=== PATIENT | male | born 1950 | race Caucasian/White ===

== ENCOUNTER 2020-08-22 14:22 | Inpatient (IN) | payer OTHER, MEDICARE ==
--- NOTE | 2020-08-22 14:38 | PDOC ---
History of Present Illness - General Chief Complaint: Loss of Appetite Stated Complaint: GENERAL WEAKNESS Time Seen by Provider: 08/22/20 14:38 - History of Present Illness Initial Comments: 70 YOM h/o testicular cancer with extension into penis and inguinal lymph nodes presents with abdominal pain, nausea, vomitting, and decreased appetite since 5 days. Patient reports pain is diffuse, food is unappealing and tastes badly. He also reports some chronic constipation which has worsened coinciding with the onset of his current symptoms. He has hemorrhoids and blood which coats his stool. Denies blood in vomit or urine. Last BM 3 days ago, still passing flatus. Uses suprapubic catheter to eliminate urine. He denies fever, chills, chest pain, shortness of breath, recent travel or sick contacts. Constitutional: No Weight Change, No Fever, No Chills, No Night Sweats, No Fatigue, No Malaise ENT/Mouth: No Hearing Changes, No Ear Pain, No Nasal Congestion, No Sinus Pain, No Hoarseness, No sore throat, No Rhinorrhea, No Swallowing Difficulty Eyes: No Eye Pain, No Swelling, No Redness, No Foreign Body, No Discharge, No Vision Changes Cardiovascular: No Chest Pain, No SOB, No PND, No Dyspnea on Exertion, No Orthopnea, No Claudication, No Edema, No Palpitations Respiratory: No Cough, No Sputum, No Wheezing, No Smoke Exposure, No Dyspnea Gastrointestinal: + Nausea, + Vomiting, No Diarrhea, + Constipation, + Pain, No Heartburn, No Anorexia, No Dysphagia, No Hematochezia, No Melena, No Flatulence, No Jaundice Genitourinary: No Dysmenorrhea, No DUB, No Dyspareunia, No Dysuria, No Urinary Frequency, No Hematuria, No Urinary Incontinence, No Urgency, No Flank Pain, No Urinary Flow Changes, No Hesitancy Musculoskeletal: No Arthralgias, No Myalgias, No Joint Swelling, No Joint Stiffness, No Back Pain, No Neck Pain, No Injury History Skin: No Skin Lesions, No Pruritis, No Hair Changes, No Breast/Skin Changes, No Nipple Discharge Neuro: No Weakness, No Numbness, No Paresthesias, No Loss of Consciousness, No Syncope, No Dizziness, No Headache, No Coordination Changes, No Recent Falls Psych: No Anxiety/Panic, No Depression, No Insomnia, No Personality Changes, No Delusions, No Rumination, No SI/HI/AH/VH, No Social Issues, No Memory Changes, No Violence/Abuse Hx., No Eating Concerns Heme/Lymph: No Bruising, No Bleeding, No Transfusions History, No Lymphadenopathy Endocrine: No Polyuria, No Polydipsia, No Temperature Intolerance Past History - Medical History Allergies/Adverse Reactions: Allergies Allergy/AdvReac Type Severity Reaction Status Date / Time Quinolones Allergy Verified 08/22/20 15:40 flouroquinolones Allergy Uncoded 08/22/20 14:39 Home Medications: Ambulatory Orders NK [No Known Home Medication] 08/22/20 Psychiatric Problems: Yes (depression, anxiety) - Immunization History Immunization Up to Date: Yes - Psycho-Social/Smoking History Smoking History: Former smoker *Physical Exam - Physical Exam General Appearance: Yes: Moderate Distress, Cachetic HEENT: positive: EOMI, NIR, Normal ENT Inspection, Normal Voice, Symmetrical, TMs Normal, Pharynx Normal Neck: positive: Trachea midline, Normal Thyroid Respiratory/Chest: positive: Lungs Clear, Normal Breath Sounds Cardiovascular: positive: Regular Rhythm, Regular Rate, S1, S2 Gastrointestinal/Abdominal: positive: Normal Bowel Sounds, Tender, Guarding, Tenderness Rectal Exam: positive: hemorrhoids, other (no gross blood) Musculoskeletal: positive: Normal Inspection (patient has patches of erythema and scabbing on bl ant legs ) Extremity: positive: Normal Capillary Refill, Normal Inspection, Other Integumentary: positive: Normal Color, Dry, Warm Neurologic: positive: agriculture internship II-XII NML intact, Fully Oriented, Alert, Normal Mood/Affect, Normal Response, Motor Strength 5/5 ED Treatment Course - LABORATORY CBC & Chemistry Diagram: 08/22/20 15:30 08/22/20 15:30 Medical Decision Making - Medical Decision Making 69 YOM h/o testicular cancer with mets presents for inability to tolerate PO and dehydration - vitals significant for HR 113, RR 22, temp 99.9 (rectal unchanged) - exam significant for diffuse abdominal tenderness, suprapubic catheter in place - CBC, CMP, lactate, blood cultures, UA CT chest/ abdomen/ pelvis, EKG, CXR reassess: CXR shows bilat pleural effusions CT CAP show bilat pleural effusions with atelectasis, fractures in posterior 4th rib and pelvis UA remarkable for 2+ LE and blood EKG remarkable for regularly irregular rythm Patient changed suprapubic catheter 4 weeks prior, possibly contaminated urine, changed catheter at bedside will treat for sepsis and admit, suggest to admitting team to redo UA 08/22/20 21:32 Discharge - Discharge Information Problems reviewed: Yes Clinical Impression/Diagnosis: Sepsis Condition: Good - Follow up/Referral - Patient Discharge Instructions - Post Discharge Activity
[2020-08-22 14:47] VITALS: BMI 17.4
[2020-08-22] MEDS ORDERED: LACTATED RINGERS SOLUTION 1000 ML INFUS.BAG IV ONE (15:19)
[2020-08-22 15:42] LABS: INR 1.09 (0.83-1.09); PROTHROMBIN TIME (PATIENT) 12.9 SEC (9.7-13.0)
[2020-08-22 15:45] LABS: ACTIVATED PTT 29.5 SECONDS (25.2-36.5)
[2020-08-22 15:53] LABS: BASO % 0.2 % (0-2.0); HEMATOCRIT 36.5 % (35.4-49); HEMOGLOBIN 11.8 GM/dL (11.7-16.9); LYMPH % 3.6 % (8-40); MCH 25.7 pg (25.7-33.7); MCHC 32.3 g/dl (32.0-35.9); MEAN CELL VOLUME 79.5 fl (80-96); MEAN PLT VOLUME 7.6 fl (7.5-11.1); MONO % 5.9 % (3.8-10.2); NEUT % 90.3 % (42.8-82.8); PLATELET COUNT 408 K/MM3 (134-434); RBC 4.59 M/mm3 (4.00-5.60); RDW 16.2 % (11.9-15.9); WHITE BLOOD COUNT 11.5 K/mm3 (4.0-10.0)
[2020-08-22 16:27] LABS: ALBUMIN 2.4 g/dl (3.4-5.0); ALK PHOS 128 U/L (45-117); ANION GAP 10 MMOL/L (8-16); BILIRUBIN,TOTAL 0.4 mg/dL (0.2-1); BLOOD UREA NITROGEN 36.2 mg/dL (7-18); CALCIUM 8.7 mg/dL (8.5-10.1); CHLORIDE 99 mmol/L (98-107); CO2 25 mmol/L (21-32); CREATININE 1.3 mg/dL (0.55-1.3); GLUCOSE,RANDOM 88 mg/dL (74-106); LDH 368 U/L (87-246); POTASSIUM 4.8 mmol/L (3.5-5.1); SGOT/AST 81 U/L (15-37); SGPT/ALT 24 U/L (13-61); SODIUM 135 mmol/L (136-145); TOT PROT 5.5 g/dl (6.4-8.2)
[2020-08-22 16:32] LABS: EPI CELLS 32 /uL (0-25.1); HYALINE CASTS 5 /uL (0-3.1); URINE APPEARANCE TURBID; URINE BACTERIA >9,000 /uL (0-1359); URINE BILIRUBIN NEGATIVE (NEGATIVE); URINE COLOR DK YELLOW; URINE GLUCOSE (UA) NEGATIVE (NEGATIVE); URINE KETONE 1+ (NEGATIVE); URINE LEUK ESTERASE 2+ (NEGATIVE); URINE NITRITE NEGATIVE (NEGATIVE); URINE PROTEIN 2+ (NEGATIVE); URINE WBC 2716 /uL (0-25.8)
--- NOTE | 2020-08-22 16:56 | PDOC ---
Documentation entered by Mykel Bajwa SCRIBE, acting as scribe for Clayton Lindsey MD. Clayton Lindsey MD: This documentation has been prepared by the Graett almodovar Xhesika, SCRIBE, under my direction and personally reviewed by me in its entirety. I confirm that the documentation accurately reflects all work, treatment, procedures, and medical decision making performed by me. Attending Attestation - Resident Resident Name: Terry Yusuf - ED Attending Attestation I have performed the following: I have examined & evaluated the patient, The case was reviewed & discussed with the resident, I agree w/resident's findings & plan, Exceptions are as noted - HPI HPI: 08/22/20 14:46 The patient is a 69 y/o male with a history of metastatic penile ca, anxiety, depression (on Lorazepam) and arthritis (on Mobic), who presents to the ER for evaluation of diffuse abdominal pain, N/V and decreased appetite x5days. Pt also reports constipation, which has been progressively worsening since the onset of his symptoms. Pt reports hemorrhoids and blood that coats his stool. Pt states his last BM was 3 days ago. Pt does have a complaint of occasional cp/sob when he exerts himself for the past several weeks The patient denies shortness of breath, headache and dizziness. Denies fever, chills, cough,diarrhea. Denies dysuria, frequency, urgency and hematuria. Allergies: flouroquinolones - Physicial Exam PE: 08/22/20 16:42 GENERAL: The patient is awake, alert, and fully oriented, Nontoxic - in no acute distress.cachectic appearing HEAD: Normocephalic, atraumatic. EYES: extraocular movements intact, sclera anicteric, conjunctiva clear. ENT: Normal voice, dry mucous membranes. NECK: Normal range of motion, supple, several palable cervical lymph nodes LUNGS: Breath sounds equal, clear to auscultation bilaterally. No wheezes, no rhonchi, no rales. HEART: slightly tachcyardic, normal S1 and S2 without murmur, rub or gallop. ABDOMEN: Soft, nontender, No guarding, no rebound. No CVA tenderness, suprapubic cath in place : Large matted/fixed inguinal lymph node on R side, smaller node noted on L inguinal region EXTREMITIES: Normal range of motion, no edema. NEUROLOGICAL: No facial assymetry, Normal speech, moving all 4 ext spontaneously and symemtrically PSYCH: Normal mood, normal affect. - Medical Decision Making 08/22/20 16:53 pt appears dehydrated will ck labs to eval for anemia, metabolic derangement, occult infection, acs consider advanced / late stage ca will give fluids for fluid resusitation 08/22/20 18:[address] noted for b/l large pleural effusions,also noted for ostelytic lesions on spin and pelivis, also noted for pathology nondisplaced fractures on right inferior pubic ramus and suprior ischiopubic junction. extensive inguinal lymphadenopathy noted will admit for further management Heart Score/ECG Review - ECG Impressions Comment:: 08/22/20 16:54 Twelve-lead EKG was performed and reviewed by me. rate of 106 The axis is normal. The intervals are normal. There is normal R wave progression There are no ST or T wave abnormalities. Discharge - Discharge Information Problems reviewed: Yes Clinical Impression/Diagnosis: Pleural effusion Metastatic cancer Qualifiers: Area of secondary neoplastic involvement: bone Qualified Code(s): C79.51 - Secondary malignant neoplasm of bone Rib fracture Qualifiers: Encounter type: initial encounter Rib fracture type: single rib Fracture type: closed Laterality: left Qualified Code(s): S22.32XA - Fracture of one rib, left side, initial encounter for closed fracture Pubic ramus fracture Qualifiers: Encounter type: initial encounter Fracture type: closed Laterality: right Qualified Code(s): S32.591A - Other specified fracture of right pubis, initial encounter for closed fracture Condition: Good - Follow up/Referral - Patient Discharge Instructions - Post Discharge Activity
[2020-08-22 17:22] LABS: URINE CRYSTALS 0 /hpf; URINE RBC 60.5 /uL (0-23.9); YEAST NEGATIVE (NEGATIVE)
[2020-08-22 19:43] LABS: EPI CELLS >36 /uL (0-25.1); HYALINE CASTS 7 /uL (0-3.1); URINE APPEARANCE CLOUDY; URINE BILIRUBIN NEGATIVE (NEGATIVE); URINE COLOR YELLOW; URINE GLUCOSE (UA) NEGATIVE (NEGATIVE); URINE KETONE 2+ (NEGATIVE); URINE LEUK ESTERASE 1+ (NEGATIVE); URINE NITRITE NEGATIVE (NEGATIVE); URINE PROTEIN 2+ (NEGATIVE); URINE RBC 1772 /uL (0-23.9); URINE WBC 77 /uL (0-25.8)
--- NOTE | 2020-08-22 19:56 | PN ---
Teaching Attending Note Name of Resident: Irina Hannon ATTENDING PHYSICIAN STATEMENT I saw and evaluated the patient. I reviewed the resident's note and discussed the case with the resident. I agree with the resident's findings and plan as documented. SUBJECTIVE: Patient is a 69 year old man with a PMH of Metastatic penile cancer, Urinary outlet obstruction due to enlarged prostate, Kidney stones, Suprapubic catheter use, Anxiety, Depression, Chronic neck pain and Arthritis who presents with abdominal pain, nausea, vomiting and decreased appetite for 5 days. Patient reports pain is diffuse, food is unappealing and tastes badly. Has dysphagia to solids and liquids. He also reports some chronic constipation which has worsened coinciding with the onset of his current symptoms. Takes narcotics for pain. He has hemorrhoids and blood which coats his stool. Denies blood in vomit or urine. Last bowel movement was 3 days ago and still passing flatus. Reports recent occasional chest pain and SOB when he exerts himself. He denies fever, chills, palpitations, dizziness or hematuria. Denies alcohol, tobacco or illicit drug use. No sick contacts or recent travels. Family history of breast cancer in mother; bladder cancer in father; lung and liver cancer in his brothers. OBJECTIVE: Alert and cachectic Vital Signs Period Temp Pulse Resp BP Sys/Ag Pulse Ox Last 24 Hr 99.9 F 89-113 22-22 124-136/66-84 99-100 HEENT: No Jaundice, eye redness or discharge, PERRLA, EOMI. Normocephalic, atraumatic. External ears are normal and hearing is grossly intact. No nasal discharge. Neck: Supple, nontender. Palpable adenopathy or thyromegaly. No JVD Chest: Good effort. Diminished breath sounds in lung bases. Heart: Irregular. No S3, rub or murmur Abdomen: Not distended, soft, nontender; suprapubic catheter in place and no HSM. No rebound or guarding. Normal bowel sounds. Ext: Peripheral pulses intact. No leg edema. Inguinal lymphadenopathy. Generalized rash in lower extremities. Skin: Warm and dry. No petechiae or ecchymosis. Neuro: Alert. Oriented x3. CN 2-12 grossly intact. Sensation grossly intact in all four extremities and DTR are symmetric. Psych: Appropriate mood and affect. Good insight. Home Medications Medication Instructions Recorded NK [No Known Home Medication] 08/22/20 Abnormal Lab Results 08/22/20 08/22/20 08/22/20 15:25 15:30 15:30 WBC 11.5 H MCV 79.5 L RDW 16.2 H Absolute Neuts (auto) 10.4 H Neutrophils % 90.3 H Lymphocytes % 3.6 L D Sodium 135 L BUN 36.2 H Lactic Acid 2.5 H* Ferritin 2665.1 H AST 81 H Alkaline Phosphatase 128 H LD Total 368 H Total Protein 5.5 L Albumin 2.4 L Urine Protein Urine Ketones Urine Blood Ur Leukocyte Esterase 08/22/20 08/22/20 16:05 18:30 WBC MCV RDW Absolute Neuts (auto) Neutrophils % Lymphocytes % Sodium BUN Lactic Acid Ferritin AST Alkaline Phosphatase LD Total Total Protein Albumin Urine Protein 2+ H 2+ H Urine Ketones 1+ H 2+ H Urine Blood 3+ H 3+ H Ur Leukocyte Esterase 2+ H 1+ H Current Medications Generic Name Dose Route Start Last Admin Trade Name Denzelq PRN Reason Stop Dose Admin Ascorbic Acid 500 mg 08/22/20 22:00 Vitamin C - PO BID LUIS ANTONIO Ceftriaxone Sodium 1,000 mg 08/22/20 22:07 Rocephin - IVPUSH 08/22/20 22:08 ONCE ONE Ceftriaxone Sodium 1,000 mg 08/23/20 10:00 Rocephin - IVPUSH 08/23/20 10:01 ONCE ONE Cholecalciferol 800 unit 08/22/20 22:00 Vitamin D3 - PO DAILY [facility] Docusate Sodium 100 mg 08/23/20 10:00 Colace - PO DAILY LUIS ANTONIO Sodium Chloride 1,000 mls @ 42 mls/hr 08/22/20 21:45 Normal Saline - IV ASDIR LUIS ANTONIO Azithromycin 500 mg in 250 mls @ 250 mls/hr 08/23/20 22:04 Zithromax 500mg Ivpb (Pre-Docked) IVPB 08/23/20 23:03 ONCE ONE Azithromycin 250 mg/ Dextrose 250 mls @ 250 mls/hr 08/23/20 10:00 IVPB 08/26/20 11:00 DAILY LUIS ANTONIO Polyethylene Glycol 17 gm 08/23/20 10:00 Miralax (For Daily Use) - PO BID LUIS ANTONIO Zinc Sulfate 220 mg 08/22/20 22:00 Orazinc - PO BID LUIS ANTONIO ASSESSMENT AND PLAN: 1. Metastatic cancer/?Sepsis due to UTI/Rule out COVID-19 infection - CXR shows cardiomegaly, bilateral pleural effusion and bibasilar atelectasis/infiltrates. Noncontrast CT scan of chest/abdomen/pelvis shows bilateral large pleural effusions, osteolytic lesions on spine and pelivis, nondisplaced fractures on right inferior pubic ramus and suprior ischiopubic junction and extensive inguinal lymphadenopathy. Viral testing for COVID-19 ordered and patient placed on airborne, droplet and contact isolation. Started on supplemental oxygen via nasal cannula. Got IV LR in the ER. Will treat patient with Miralax 17 gm bid, Zinc sulfate, Pepcid, Vitamin D, Vitamin C, IV Ceftriaxone and Azithromycin, Tylenol PRN and consult ID/Oncology/Pulmonary/GI/Palliative care. EKG shows ?Atrial flutter at 106/minute and QTc 430 with no significant acute ischemic ST-T wave changes. Changed compared to prior EKG. Initial troponin is negative. Will continue comprehensive care for all of patients comorbid conditions. 2. Hypoalbuminemia - Possibly due to combined effects of proteinuria, malnutrition and inflammation associated with comorbid conditions. Will ensure adequate dietary protein intake and also consult atmospheric chemist. BMI is low - needs intense nutritional support. 3. SHEELA Parly due to dehydration and/or NSAID use. Will hydrate gently, monitor urine output and consult Nephrology. Avoid nephrotoxic agents such as NSAIDS, aminoglycosides, contrast dyes and certain Alternative medicine products. 4. DVT prophylaxis - Lovenox 40 mg SQ q 24 hours. 5. Advance directives - Full code
[2020-08-22] MEDS ORDERED: PIPERACILLIN/TAZOB 4.5 GM 4.5 GM in DEXTROSE 5%-WATER 100 ML IVPB ONE (20:05)
[2020-08-22] MEDS ORDERED: VANCOMYCIN 1 GRAM (PRE-DOCKED) 1,000 MG/250 ML BAG IVPB ONE (20:05)
--- NOTE | 2020-08-22 20:52 | HP ---
CHIEF COMPLAINT: Dysphagia, abdominal pain, dyspnea PCP: Dr. Torrez Urologist: Dr. Prasad HISTORY OF PRESENT ILLNESS: 69 year old man with PMH metastatic penile cancer (diagnosed 1967, currently with suprapubic catheter, mets to prostate, neck, with inguinal lymph node involvement), hemorrhoids, chronic constipation presenting with 4 days of diffuse abdominal pain, worsening dysphagia, constipation, dyspnea, and recent weight loss 20 pounds past 3 months. He describes the abdominal pain as occuring intermittently, rated as 7/10, with radiation to the groin. States he suffers from constipation, last BM was 3 days ago, and he passed a large, hard, olmos colored stool that was covered with blood, with minimal relief of the abdominal pain. This is typical of his bowel movements, reports suffering from hemorrhoids the past several years. He states that he has been experiencing dysphagia for the past several weeks, with worsening the past 3 days -- has been experiencing dysphagia to solids and liquids, which has led to some medication non compliance. He has had 2 prior colonoscopies, last one 4 years ago --negative findings per patient. He also reports increasing dyspnea over the past few weeks, cough productive of yellow sputum, and chest pain with exertion. Last admission was a few weeks ago at [facility] for kidney stones. Of note, he is also dealing with a chronic diffuse rash that began 4 years ago during an immunotherapy treatment for his cancer. ER course was notable for: - Patient with tachycardia 113, tachypnea 22, T 99.8 - Labs revealing mildly elevated leukocytosis 11.5, and urinalysis suggestive of UTI (3+ blood, leuk esterase) - CT revealing bilateral pleural effusion Recent Travel: None PAST MEDICAL HISTORY: Metastatic Penile cancer diagnosed 1967 Hemorrhoids Anxiety Arthritis Constipation PAST SURGICAL HISTORY: Inguinal hernia repair with mesh placement -- 2010 Surgical intervention on prostate to remove cancer -- 2010 Suprapubic catheter placed -- 2017 Social History: Smoking: Prior smoker (50+ y ago) Alcohol: Prior social drinker (50+ y ago) Drugs: None Allergies Quinolones Allergy (Verified 08/22/20 15:40) flouroquinolones Allergy (Uncoded 08/22/20 14:39) HOME MEDICATIONS: Home Medications Medication Instructions Recorded NK [No Known Home Medication] 08/22/20 REVIEW OF SYSTEMS See HPI PHYSICAL EXAMINATION Vital Signs - 24 hr 0908/22/20 08/22/20 14:38 15:18 18:25 Temperature 99.9 F H Pulse Rate 113 H Pulse Rate [ Left] Respiratory 22 H Rate Blood Pressure 136/66 Blood Pressure [Right Arm] O2 Sat by Pulse 99 100 Oximetry (%) 08/22/20 18:56 Temperature Pulse Rate Pulse Rate [ 89 Left] Respiratory 22 H Rate Blood Pressure Blood Pressure 124/84 [Right Arm] O2 Sat by Pulse 100 Oximetry (%) GENERAL: Elderly, cachectic gentlemen, awake, alert, and fully oriented, in no acute distress. HEAD: Normal with no signs of trauma. Patchy areas of alopecia. EYES: Pupils equal, round and reactive to light, extraocular movements intact, sclera anicteric. EARS, NOSE, THROAT: Ears normal, nares patent, oropharynx clear without exudates. Moist mucous membranes. NECK: Bilateral anterior cervical lymphadenopathy, and R sided supraclavicular lymph nodes LUNGS: Decreased lung sounds at the bases bilaterally. No wheezes, crackles. No accessory muscle use. HEART: Regular rate and rhythm, normal S1 and S2 without murmur, rub or gallop. ABDOMEN: Soft, nontender, not distended, normoactive bowel sounds, no guarding, no rebound. Suprapubic catheter in place draining clear yellow urine; without surrounding skin erythema. RECTAL EXAM DEFERRED (ALREADY DONE BY ED PHYSICIAN) LOWER EXTREMITIES: 2+ pulses, warm. R fay with patchy areas of erythema with overlying scabs. No peripheral edema. NEUROLOGICAL: Cranial nerves II-XII intact. Normal speech. PSYCHIATRIC: Cooperative. Good eye contact. Appropriate mood and affect. Laboratory Results - last 24 hr 08/22/20 08/22/20 08/22/20 15:25 15:25 15:30 WBC 11.5 H RBC 4.59 Hgb 11.8 Hct 36.5 MCV 79.5 L MCH 25.7 MCHC 32.3 RDW 16.2 H Plt Count 408 D MPV 7.6 Absolute Neuts (auto) 10.4 H Neutrophils % 90.3 H Lymphocytes % 3.6 L D Monocytes % 5.9 Eosinophils % 0.0 D Basophils % 0.2 Nucleated RBC % 0 PT with INR 12.90 INR 1.09 PTT (Actin FS) 29.5 Sodium Potassium Chloride Carbon Dioxide Anion Gap BUN Creatinine Est GFR (CKD-EPI)AfAm Est GFR (CKD-EPI)NonAf Random Glucose Lactic Acid 2.5 H* Calcium Ferritin Total Bilirubin AST ALT Alkaline Phosphatase LD Total Creatine Kinase Creatine Kinase Index CK-MB (CK-2) Troponin I Total Protein Albumin Urine Color Urine Appearance Urine pH Ur Specific [place] Urine Protein Urine Glucose (UA) Urine Ketones Urine Blood Urine Nitrite Urine Bilirubin Urine Urobilinogen Ur Leukocyte Esterase Urine WBC (Auto) Urine RBC (Auto) Urine Casts (Auto) U Pathogenic Cast Auto U Epithel Cells (Auto) Urine Crystals (Auto) Urine Bacteria (Auto) Urine Yeast (Auto) Blood Type Antibody Screen 08/22/20 08/22/20 08/22/20 15:30 15:30 15:30 WBC RBC Hgb Hct MCV MCH MCHC RDW Plt Count MPV Absolute Neuts (auto) Neutrophils % Lymphocytes % Monocytes % Eosinophils % Basophils % Nucleated RBC % PT with INR INR PTT (Actin FS) Sodium 135 L Potassium 4.8 Chloride 99 Carbon Dioxide 25 Anion Gap 10 BUN 36.2 H Creatinine 1.3 Est GFR (CKD-EPI)AfAm 64.52 Est GFR (CKD-EPI)NonAf 55.67 Random Glucose 88 Lactic Acid Calcium 8.7 Ferritin 2665.1 H Total Bilirubin 0.4 AST 81 H ALT 24 Alkaline Phosphatase 128 H LD Total 368 H Creatine Kinase 249 Creatine Kinase Index 0.6 CK-MB (CK-2) 1.6 Cancelled Troponin I < 0.02 Total Protein 5.5 L Albumin 2.4 L Urine Color Urine Appearance Urine pH Ur Specific [place] Urine Protein Urine Glucose (UA) Urine Ketones Urine Blood Urine Nitrite Urine Bilirubin Urine Urobilinogen Ur Leukocyte Esterase Urine WBC (Auto) Urine RBC (Auto) Urine Casts (Auto) U Pathogenic Cast Auto U Epithel Cells (Auto) Urine Crystals (Auto) Urine Bacteria (Auto) Urine Yeast (Auto) Blood Type A POSITIVE Antibody Screen Negative 08/22/20 08/22/20 08/22/20 16:05 18:30 19:00 WBC RBC Hgb Hct MCV MCH MCHC RDW Plt Count MPV Absolute Neuts (auto) Neutrophils % Lymphocytes % Monocytes % Eosinophils % Basophils % Nucleated RBC % PT with INR INR PTT (Actin FS) Sodium Potassium Chloride Carbon Dioxide Anion Gap BUN Creatinine Est GFR (CKD-EPI)AfAm Est GFR (CKD-EPI)NonAf Random Glucose Lactic Acid 2.1 H Calcium Ferritin Total Bilirubin AST ALT Alkaline Phosphatase LD Total Creatine Kinase Creatine Kinase Index CK-MB (CK-2) Troponin I Total Protein Albumin Urine Color Dk yellow Yellow Urine Appearance Turbid Cloudy Urine pH 5.0 D 5.0 Ur Specific [place] 1.026 1.024 Urine Protein 2+ H 2+ H Urine Glucose (UA) Negative Negative Urine Ketones 1+ H 2+ H Urine Blood 3+ H 3+ H Urine Nitrite Negative Negative Urine Bilirubin Negative Negative Urine Urobilinogen 1.0 1.0 Ur Leukocyte Esterase 2+ H 1+ H Urine WBC (Auto) 2716 77 Urine RBC (Auto) 60.5 1772 Urine Casts (Auto) 5 7 U Pathogenic Cast Auto Negative U Epithel Cells (Auto) 32 >36 Urine Crystals (Auto) 0 Urine Bacteria (Auto) >9,000 Urine Yeast (Auto) Negative Blood Type Antibody Screen ASSESSMENT/PLAN: 69 year old man with H metastaic penile cancer (diagnosed 1967, currently with suprapubic catheter, mets to prostate, neck, with inguinal lymph node involvement)), hemorrhoids, chronic constipation presenting with dysphagia, abdominal pain, dyspnea, urinalysis suggestive of UTI, CXR showing b/l large pleural effusion, and elevated covid markers (ferritin, LDH). #Sepsis secondary to complicated UTI - Tachycardic, tachypneic, T 99.9, leukocytosis- 11.5 w/ UA indicative of UTI (urine WBC 77, RBC 1772, >9000 bacteria), lactic 2.5 --> 2.1 - Received 1L LR in ED - Continue gentle iv hydration (0.9 NS @ 42/ml) in light of patient with b/l pleural effusion - Begin Azithromycin and Rocephin - ID consult placed - f/u urine and blood cultures - f/u lactic acid #Dyspnea with b/l pleural effusion - Patient with increasing dyspnea - only able to ambulate ~10ft without resting - CT revealing large pleural effusion - Pulmonary consult placed - Consider therapeutic thoracentesis - Continue supplemental oxygen to keep sats > 94 #R/O atypical COVID - CXR without classic covid findings, CT negative for ground glass opacities; yet covid markers elevated (ferritin 2665; LDH 368) - Begin Zinc 220 po bid, ascorbic acid 500 po bid, D3 800 po daily - Azithromycin and Rocephin for empiric coverage of super imposed bacterial pneumonia - ID consult placed #Chest pain - Patient with chest pain past several weeks; likely stable angina or the result of pleural effusion - EKG with undetermined rhythm (atrial flutter?); first troponin negative - F/u trend troponins - F/u repeat EKG - F/u magnesium - Cardiology consult #Dysphagia - Chronic dysphagia past 2 months with worsening within the past 3 days - Speech and swallow evaluation - GI consult to evaluate dysphagia Chronic Constipation - Patient last BM 3 days ago; hemorrhoids - FOBT negative - Begin bowel regimen Miralax 17g bid and Colace #Metastatic Penile Cancer - Recent weight loss >20 pounds last 2 months - Previously on immunotherapy -- discontinued 8 months ago after development of diffuse rash on abdomen and extremities - Pain meds: Oxycontin 10 mg q12 with oxycodone 5 mg q6 for breakthrough pain - Oncology consult - Palliative care consult - Consider obtaining records from [place] (where he received care) #?SHEELA - Creatinine 1.3, unsure of patients baseline - Will trend creatinine #Failure to thrive - Patient with BMI 17.5; decreased appetite; 20 pound weight loss past 2 months - Egg Candler consult - Add Ensure DVT Prophylaxis: SCDs (hematuria) FEN - Gentle iv hydration with 0.9 NS @ 42 mls/hr (in light of b/l pleural effusion ) - Monitor electrolytes; f/u magnesium, phosphorus - Soft diet Disposition: Tele FULL CODE Family Medical History Family History: As Documented Visit type - Medication Review Med list reviewed for High Risk Meds patients 65 and older: Yes - Emergency Visit Emergency Visit: Yes ED Registration Date: 08/22/20 Care time: The patient presented to the Emergency Department on the above date and was hospitalized for further evaluation of their emergent condition. - New Patient This patient is new to me today: Yes Date on this admission: 08/23/20 - Critical Care Critical Care patient: No ATTENDING PHYSICIAN STATEMENT I saw and evaluated the patient. I reviewed the resident's note and discussed the case with the resident. I agree with the resident's findings and plan as documented. SUBJECTIVE: OBJECTIVE: ASSESSMENT AND PLAN:
[2020-08-22] MEDS ORDERED: PIPERACILLIN/TAZOB 4.5 GM 4.5 GM/100 ML BAG IVPB ONE (21:28)
[2020-08-22] MEDS ORDERED: ZINC SULFATE 220 MG CAPSULE (FP) PO SCH (22:00)
[2020-08-22] MEDS ORDERED: ASCORBIC ACID 500 MG TABLET (FP) PO SCH (22:00)
[2020-08-22] MEDS ORDERED: cefTRIAXone SODIUM 1 GM VIAL IVPB ONE (22:07)
[2020-08-22 22:41] LABS: URINE BACTERIA 620.4 /uL (0-1359)
[2020-08-22] MEDS: SODIUM CHLORIDE 1,000 ML IV SCH (22:49)
[2020-08-22] MEDS: CHOLECALCIFEROL (VIT D3) 400 UNIT (10 MCG) TABLET PO SCH (22:51)
[2020-08-22] MEDS: oxyCODONE HCL 10 MG SUSTAINED ACTING TABLET PO SCH (23:35)
--- NOTE | 2020-08-23 07:19 | PN ---
Progress Note (short form) - Note Progress Note: PULMONARY CONSULTATION DICTATED 08/23/20 IMP DYSPNEA LARGE BILATERAL PLEURAL EFFUSIONS ? CHF,? MALIGNANT METASTATIC PENILE CA,BONE METS,PROSTATE ABDOMINAL PAIN PELVIC ASCITES DYSPHAGIA LACTIC ACIDOSIS PLAN SUPPLEMENTAL O2 THERAPEUTIC/DIAGNOSTIC THORACENTESIS CONSIDER PIGTAIL CATH INSERTION ECHO CARDIOLOGY,GI EVALUATION ONCOLOGY OPINION TREND LACTATE DR HASSAN Problem List - Problems (1) Dyspnea Code(s): R06.00 - DYSPNEA, UNSPECIFIED (2) Pleural effusion Code(s): J90 - PLEURAL EFFUSION, NOT ELSEWHERE CLASSIFIED
[2020-08-23 07:30] LABS: BASO % 0.4 % (0-2.0); EOS % 0.4 % (0-4.5); HEMATOCRIT 35.9 % (35.4-49); HEMOGLOBIN 11.4 GM/dL (11.7-16.9); LYMPH % 5.3 % (8-40); MCH 25.5 pg (25.7-33.7); MCHC 31.9 g/dl (32.0-35.9); MEAN CELL VOLUME 80.1 fl (80-96); MEAN PLT VOLUME 8.1 fl (7.5-11.1); MONO % 8.9 % (3.8-10.2); PLATELET COUNT 382 K/MM3 (134-434); RBC 4.48 M/mm3 (4.00-5.60); RDW 15.8 % (11.9-15.9); WHITE BLOOD COUNT 10.9 K/mm3 (4.0-10.0)
[2020-08-23 08:03] LABS: ALBUMIN 2.3 g/dl (3.4-5.0); BILIRUBIN,TOTAL 0.4 mg/dL (0.2-1); BLOOD UREA NITROGEN 33.2 mg/dL (7-18); CALCIUM 8.1 mg/dL (8.5-10.1); CREATININE 1.2 mg/dL (0.55-1.3); MAGNESIUM 2.3 mg/dL (1.8-2.4); PHOSPHOROUS 4.2 mg/dL (2.5-4.9); POTASSIUM 4.6 mmol/L (3.5-5.1); TOT PROT 5.2 g/dl (6.4-8.2)
[2020-08-23] MEDS ORDERED: DEXTROSE 5%-WATER - 50 ML IVPB ONE (09:07)
[2020-08-23] MEDS ORDERED: cefTRIAXone SODIUM 1 GM VIAL ONE (09:07)
[2020-08-23] MEDS ORDERED: PT OWN MED DRAWER 7, Y5N ONE (09:07)
[2020-08-23] MEDS: CEFTRIAXONE 1 GM in DEXTROSE 5%-WATER - 50 ML IVPB SCH (09:13)
[2020-08-23] MEDS: CHOLECALCIFEROL (VIT D3) 400 UNIT (10 MCG) TABLET PO SCH (09:14)
[2020-08-23] MEDS: DOCUSATE SODIUM 100 MG CAPSULE (FP) PO SCH ×2 (09:17→22:15)
[2020-08-23] MEDS: POLYETHYLENE GLYCOL 3350 119 GM BTL PO SCH ×2 (09:18→22:15)
--- NOTE | 2020-08-23 09:38 | CONSULT ---
Admitting History and Physical - Admission History of Present Illness: Per EMR- 69 year old man with PMH metastatic penile cancer (diagnosed 1967, currently with suprapubic catheter, mets to prostate, neck, with inguinal lymph node involvement), hemorrhoids, chronic constipation presenting with 4 days of diffuse abdominal pain, worsening dysphagia, constipation, dyspnea, and recent weight loss 20 pounds past 3 months. He states that he has been experiencing dysphagia for the past several weeks, with worsening the past 3 days -- has been experiencing dysphagia to solids and liquids, which has led to some medication non compliance. Increasing dyspnea over the past few weeks, cough productive of yellow sputum, and chest pain with exertion. R/O atypical COVID - CXR without classic covid findings, CT negative for ground glass opacities; yet covid markers elevated (ferritin 2665; LDH 368) Selected Entries 08/22/20 08/22/20 08/22/20 14:38 18:25 18:56 Eating (Feeding ) Ability Temperature Pulse Rate Blood Pressure O2 Sat by Pulse 99 100 100 Oximetry (%) Oxygen Delivery Nasal Cannula Method 08/22/20 08/23/20 08/23/20 23:00 02:02 06:00 Eating (Feeding Independent ) Ability Temperature 98.1 F 98.2 F Pulse Rate 101 H 103 H Blood Pressure 139/92 129/69 O2 Sat by Pulse 98 93 L 100 Oximetry (%) Oxygen Delivery Nasal Cannula Method Laboratory Tests 08/22/20 08/22/20 08/23/20 15:30 15:30 06:23 WBC 11.5 H 10.9 H COVID-19 (SCOTTY) Pending History Source: Patient, Medical Record Limitations to Obtaining History: No Limitations - Smoking History Smoking history: Former smoker Have you smoked in the past 12 months: No - Alcohol/Substance Use Hx Alcohol Use: Yes (occasion) History - Admission Reason For Visit: SEPSIS - Diagnostics X-ray: Report Reviewed CT Scan: Report Reviewed - General Mental Status: Alert and Oriented, Awake and Alert, Able to Follow Commands Attention: Intact Head/Neck Control: WFL - Hearing Hearing: Functional Hearing: Impaired, Right Ear Hearing Aide: No Speech Evaluation - Communication Primary Language: [place] CITIZ[place] Communication: Yes: Within Normal Limits Oral Expression Ability: Yes: No Impairment - Speech Production Able to Make Needs Known: Yes: WNL Intelligibility: Yes: WNL - Speech Characteristics Voice Loudness: Normal Voice Pitch: Yes: Normal Voice Phonatory-based Quality: Yes: Normal, Weak Speech Pattern: Normal Nasal Resonance: Normal Articulation: Yes: Precise Rate of Speech: Intact - Language/Auditory Comprehension Follows: Yes: 2 Stage Simple Commands Observation: Able to respond to yes/no queries: Yes, Comprehends Conversational Speech: Yes - Language/Verbal Expression Able to Respond to Simple Queries: Yes: WNL Able to Communicate Wants and Needs: Yes: WNL Functional Communication Status: Yes: WNL - Swallow Evaluation/Bedside Assessment Current Nutritional Intake: Soft, Thin Liquids, Other (intermittent cough response on thin liquid. Unable to tolerate eggs with stasis) Oral Secretions: Yes: Dryness (tongue very dry), R/O Candidiasis (very slight coating on tongue.c/o pharyngeal odynophagia?) Facial Symmetry at Rest: Symmetrical Facial Symmetry on Retraction: Symmetrical Against Resistance Opening: Weak Against Resistance Closing: Weak Pucker Lips: Weak Smile: Weak Lingual Movement: Symmetric Lingual Speed of Movement: Normal Lingual Movement Strgth Against Opposition: Reduced Lingual Movement Characteristics: Normal Laryngeal Movement: Reduced Excursion, Labored,delay initiation Oral Prep Time: Increased Timing of Swallow: Delayed Coughing/Throat Clear: Yes (intermittent, thin) Recommendations - Speech Evaluation, Impression/Plan Impression: c/o Pharyngeal odynophagia, difficulty swallowing liquids/solids. Overtly tolerated sip of nectar for me, but c/o pain and difficulty. - Disposition Discharge to: Hospice (Pt considering [facility].) - Dysphagia Impressions/Plan Swallowing Skills: Impaired Dysphagia Impressions: Risk of Aspiration, Ongoing Evaluation *Silent aspiration: cannot be R/O at bedside Recommendations: MBS w Esophagus (if interested in w/u. Pt considering hospice) - Recommendations Diet Consistency: Dysphagia Pureed Medication Administration: Crushed with applesauce Liquids: Temple Thick Supplement: Ensure Pudding, Other (2 ronnie hn)
[2020-08-23] MEDS ORDERED: cefTRIAXone SODIUM 1 GM VIAL IVPB SCH (10:00)
[2020-08-23] MEDS ORDERED: DOCUSATE SODIUM 100 MG CAPSULE (FP) PO SCH (10:00)
[2020-08-23] MEDS ORDERED: AZITHROMYCIN IVPB 250 MG in DEXTROSE 5%-WATER - 250 ML IVPB SCH (10:00)
[2020-08-23] MEDS ORDERED: cefTRIAXone SODIUM 1 GM VIAL IVPB ONE ×2 (10:00)
[2020-08-23] MEDS: oxyCODONE HCL 10 MG SUSTAINED ACTING TABLET PO SCH ×2 (10:01→22:15)
--- NOTE | 2020-08-23 11:05 | EKG ---
Test Reason : Blood Pressure : / mmHG Vent. Rate : 106 BPM Atrial Rate : 106 BPM P-R Int : 000 ms QRS Dur : 074 ms QT Int : 324 ms P-R-T Axes : 000 040 062 degrees QTc Int : 430 ms UNDETERMINED RHYTHM due to baseline artifact OTHERWISE NORMAL ECG WHEN COMPARED WITH ECG OF 08-JUN-2014 07:53, CURRENT UNDETERMINED RHYTHM PRECLUDES RHYTHM COMPARISON, NEEDS REVIEW Confirmed by MD Jeni, Harry ([id number]) on 08/23/2020 11:05:19 AM Referred By: Confirmed By:Harry Ngo MD
--- NOTE | 2020-08-23 11:50 | PN ---
Progress Note (short form) - Note Progress Note: GI CONSULT DICTATED -- SWALLOW EVALUATION -- PPI -- ESOPHAGRAM -- BOWEL REGIMEN -- ONC / PALLIATIVE CARE EVALUATION
[2020-08-23] MEDS ORDERED: BISACODYL 5 MG TABLET.DR (FP) PO ONE (12:00)
--- NOTE | 2020-08-23 12:51 | CON.CARD ---
Consult Consult Specialty:: cardiology Referred by:: judith Reason for Consultation:: abnormal ekg - History of Present Illness Chief Complaint: sob History of Present Illness: 69 year old male with a pmhx of metastatic penile cancer diagnosed 1968 s/p suprapubic catheter with mets to prostate, neck, and inguinal lymph nodes admitt ed with sob, diffuse abdominal pain, and dysphagia. Noted 20lb weight loss. Increasing fermin with last few weeks with an episode of chest pain a few weeks ago. Noted wbc 11.[address] chest with b/l pleural effusions Elevated ferritin and ldh EKG sinus tachycardia with pac's. - History Source History Provided By: Patient, Medical Record - Alcohol/Substance Use Hx Alcohol Use: Yes (occasion) - Smoking History Smoking history: Former smoker Have you smoked in the past 12 months: No Home Medications - Allergies Allergies/Adverse Reactions: Allergies Allergy/AdvReac Type Severity Reaction Status Date / Time Quinolones Allergy Verified 08/22/20 15:40 flouroquinolones Allergy Uncoded 08/22/20 14:39 - Home Medications Home Medications: Ambulatory Orders NK [No Known Home Medication] 08/22/20 Vital Signs: Vital Signs Temperature 98.1 F 08/23/20 10:00 Pulse Rate 106 H 08/23/20 10:00 Respiratory Rate 19 08/23/20 10:00 Blood Pressure 141/91 08/23/20 10:00 O2 Sat by Pulse Oximetry (%) 97 08/23/20 10:00 Constitutional: Yes: Cachectic Neck: Yes: Supple Respiratory: Yes: Diminished Gastrointestinal: Yes: Soft, Other (suprapubic catheter) JVD: No Carotid Bruit: No Heart Sounds: Yes: S1, S2 Murmur: No: Systolic Murmur Edema: No - Other Data Labs, Other Data: CBC, BMP 08/23/20 06:23 08/23/20 06:23 INR, PTT INR 1.09 (0.83-1.09) 08/22/20 15:25 Troponin, BNP 08/22/20 08/23/20 15:30 02:00 Troponin I < 0.02 < 0.02 Troponin, BNP 08/22/20 08/23/20 15:30 02:00 Troponin I < 0.02 < 0.02 Imaging - Results Chest X-ray: Report Reviewed Cat Scan: Report Reviewed EKG: Image Reviewed Problem List - Problems (1) Dyspnea Code(s): R06.00 - DYSPNEA, UNSPECIFIED Assessment/Plan 69 year old male with a pmhx of metastatic penile cancer diagnosed 1968 s/p suprapubic catheter with mets to prostate, neck, and inguinal lymph nodes admitted with sob, diffuse abdominal pain, and dysphagia. Noted 20lb weight loss. Increasing fermin with last few weeks with an episode of chest pain a few weeks ago. Noted wbc 11.[address] chest with b/l pleural effusions Elevated ferritin and ldh EKG sinus tachycardia with pac's. 1) CV -Sinus tachycardia on tele with pac's EKG likely sinus with atrial bigeminy -Trops negative -Possible urosepsis. R/o covid Treat underlying infection Consider thoracentesis as per primary team/pulmonary -Will consider echocardiogram at later date after covid test back
--- NOTE | 2020-08-23 12:53 | PN ---
Teaching Attending Note Name of Resident: Ryder Guerrero ATTENDING PHYSICIAN STATEMENT I saw and evaluated the patient. I reviewed the resident's note and discussed the case with the resident. I agree with the resident's findings and plan as documented. SUBJECTIVE: Seen and examined at bedside. Patient reports his cancer was diagnosed 2 years ago, not in 1967 and that he stopped following up with his oncologist at [place] 5 to 6 months ago after they recommended chemotherapy which he declined and they told him he had only a few months to live. Since then he has not followed up with any of his doctors. It is in the setting that he is experienced a weight loss, worsening dysphasia, and failure to thrive. OBJECTIVE Last Vital Signs Temp Pulse Resp BP Pulse Ox 98.1 F 106 H 19 141/91 97 08/23/20 10:00 08/23/20 10:00 08/23/20 10:00 08/23/20 10:08/23/20 10:00 PE: Per resident note Labs/Imaging: reviewed ASSESSMENT/PLAN 69-year-old man with a history of unspecified urologic metastatic cancer, suprapubic catheter, hemorrhoids, chronic constipation presents with sepsis secondary to complicated UTI, failure to thrive, extensive bilateral pleural effusions, worsening dysphasia #Severe sepsis secondary to presumed urinary tract infection and possible parapneumonic effusions: Improving continue ceftriaxone -discontinue azithromycin -lactate trended down -f/u cultures #Metastatic urologic cancer Per patient after unsuccessful immunotherapy was offered chemotherapy but refused and was told by his oncologist he had 5 to 6 months to live approximately 8 months ago. -is currently full code Obtain records from [facility] Palliative care consult Oncology consult #Failure to thrive Dietitian #Severe protein calorie malnutrition dietitian #Dysphasia To both liquids and solids. States he has not been able to eat much in the last 4 days GI on board: Appreciate recommendations #Bilateral pleural effusions Does not appear externally fluid overloaded, most likely represents malignant pleural effusions. Pulmonary on board: Pending recommendations Dispo: Most likely has terminal cancer. Will obtain outside records and based on information provide patient with treatment or palliative management
--- NOTE | 2020-08-23 14:11 | CONS ---
DATE OF CONSULTATION: DATE OF DICTATION: 08/23/2020 HISTORY OF PRESENT ILLNESS: The patient is a 69-year-old man with a past medical history significant for metastatic penile cancer diagnosed in 1967, currently with a suprapubic catheter, and metastatic disease to the prostate and lymph nodes and neck. Also with a history of chronic constipation, who presents to the hospital with complaints of shortness of breath, worsening dysphagia, and diffuse abdominal discomfort and also claims he has lost 20 pounds in the past 3 months. He states that his dysphagia has gotten worse to both solids and liquids. He denies odynophagia. He states the abdominal pain is somewhat better this morning but was diffuse, and his last bowel movement was 3 days ago which was very hard in consistency. His dysphagia has led to medication noncompliance. He had a colonoscopy, last one 4 years ago, which was negative as per the patient. He has not had a recent upper endoscopy. He denies nausea, vomiting, hematemesis, melena, hematochezia. PAST MEDICAL HISTORY: As listed in the HPI. PAST SURGICAL HISTORY: Includes inguinal hernia repair in 2010. Surgical intervention on the prostate with removal of cancer 2010. Suprapubic catheter in 2017. ALLERGIES: QUINOLONES. MEDICATIONS: Home medications were reviewed. SOCIAL HISTORY: Significant for prior smoker 50-plus years. Social drinker in the past also. No drug abuse. FAMILY HISTORY: Noncontributory. PHYSICAL EXAMINATION: Vital Signs: Temperature 98.1, pulse 90, respiratory rate 16, blood pressure 120/84, pulse oximetry 100% on room air. General: No acute distress. Awake, alert, and oriented x3. Pleasant gentleman. HEENT: Anicteric sclerae. Cardiovascular: S1, S2. Regular rate and rhythm. Lungs: Clear anteriorly, with decreased at the bases. Abdomen: Soft and nontender, nondistended. There is a suprapubic catheter in place. Lower Extremities: No edema. Neurologic: Intact. LABORATORY: White blood cell count 10. Hemoglobin 11, hematocrit 35, MCV 80, platelet count 382. INR 1. Sodium 137, potassium 4.6. BUN 33, creatinine 1.2. Total bilirubin 0.4. AST 77, ALT 21, alkaline phosphatase 120. Urine, 2+ ketones, 3+ blood, 1+ leukocyte esterase. Stool for occult blood was negative. COVID-19 testing is pending. Cultures are also pending. He did have an abdomen and pelvic CT scan which was without contrast. This revealed pleural effusions, bilateral flank subcutaneous edema, multilevel thoracolumbar vertebral osteolytic lesions, metastatic disease, a small amount of ascites, bilateral inguinal lymphadenopathy, right pelvic lymphadenopathy, and mild retroperitoneal lymphadenopathy, and a 0.6-cm nonobstructing renal calculus. CT of the chest as previously mentioned. IMPRESSION: Dysphagia to both solids and liquids, smoking history, history of carcinoma stricture, malignancy will need to be excluded as the etiology of his present symptoms. Also include in the differential diagnosis are infectious etiologies such as esophageal candidiasis in the setting of cancer patient and esophagitis secondary to reflux disease. Recommend esophagram. He is presently on a soft diet which can be continued as tolerated. Would also request a speech and swallow evaluation as well as oncology evaluation and palliative care, with goals of care to be addressed. I will also start him on Protonix 40 mg IV daily. Discussion regarding PEG tube will be put on hold until a formal swallow evaluation is obtained and the esophagram results are available. Bowel regimen. He has been given polyethylene glycol b.i.d. and Colace. Will also give him suppositories today, and he can be maintained on tap water enemas 3 times a week as well as his PO bowel regimen. Will follow. DO BEBA WILDER/[id number] MTDD
[2020-08-23 15:40] LABS: BF WBC & OTHER NUCLEATED CELLS 403 /mm3
--- NOTE | 2020-08-23 15:42 | CON.ID ---
Consult Consult Specialty:: infectious disease Referred by:: hospitalist Reason for Consultation:: possible uti - History of Present Illness Chief Complaint: sob History of Present Illness: extremely poor historian 69 yo man lives with his sister, history of penile cancer with SPT- recently changed at [facility] now with worsening osb and weight loss has not seen his doctors for many months now- unclear how long gives history of prior chemo and RT- was getting care at [facility] no vomiting no cough ct scans in ed reveal large bilateral effusions and metastatic cancer wit +adenopathy and bony metastases he is s/p chest tube placement this afternoon no fevers - History Source History Provided By: Patient Limitations to Obtaining History: Clinical Condition - Past Medical History Gastrointestinal: Yes: Hemorrhoids Heme/Onc: Yes: Cancer (penile) Psych: Yes: Anxiety - Past Surgical History Past Surgical History: Yes: Hernia Repair Additional Surgical History: surgery for penile cancer. suprapubic catheter placement - Alcohol/Substance Use Hx Alcohol Use: Yes (occasion) - Smoking History Smoking history: Former smoker Have you smoked in the past 12 months: No - Social History Usual Living Arrangement: Other (with sister) ADL: Independent Occupation: former printer History of Recent Travel: No Home Medications - Allergies Allergies/Adverse Reactions: Allergies Allergy/AdvReac Type Severity Reaction Status Date / Time Quinolones Allergy Verified 08/22/20 15:40 flouroquinolones Allergy Uncoded 08/22/20 14:39 - Home Medications Home Medications: Ambulatory Orders Cefdinir 300 mg PO DAILY 08/23/20 Clindamycin [Cleocin -] 300 mg PO ONCE 08/23/20 Family Medical History Family History: Denies Review of Systems - Review of Systems Constitutional: reports: Loss of Appetite, Unintentional Wgt. Loss, Weakness. denies: Chills, Fever Eyes: reports: No Symptoms HENT: reports: No Symptoms Neck: reports: No Symptoms Cardiovascular: denies: Chest Pain Respiratory: reports: SOB Gastrointestinal: reports: No Symptoms. denies: Abdominal Pain Genitourinary: reports: No Symptoms Physical Exam Vital Signs: Vital Signs Temperature 98.3 F 08/23/20 14:02 Pulse Rate 123 H 08/23/20 14:02 Respiratory Rate 24 H 08/23/20 14:02 Blood Pressure 115/74 08/23/20 14:02 O2 Sat by Pulse Oximetry (%) 97 08/23/20 10:00 Constitutional: Yes: Cachectic, Thin Eyes: Yes: Conjunctiva Clear HENT: Yes: Atraumatic, Normocephalic Neck: Yes: Supple Cardiovascular: Yes: Regular Rate and Rhythm Respiratory: Yes: Diminished (at bases, chest tube with clear serosanguinous luisa inage) Gastrointestinal: Yes: Normal Bowel Sounds, Soft. No: Tenderness ...Rectal Exam: Yes: Deferred Renal/: Yes: Other (suprapubic tube). No: CVA Tenderness - Left, CVA Tenderness - Right Musculoskeletal: Yes: WNL Extremities: Yes: WNL Edema: No Neurological: Yes: Alert Psychiatric: Yes: Alert Labs: CBC, BMP 08/23/20 06:23 08/23/20 06:23 Imaging - Results Chest X-ray: Report Reviewed, Image Reviewed Cat Scan: Report Reviewed Problem List - Problems (1) Leukocytosis Code(s): D72.829 - ELEVATED WHITE BLOOD CELL COUNT, UNSPECIFIED (2) Elevated lactic acid level Code(s): R79.89 - OTHER SPECIFIED ABNORMAL FINDINGS OF BLOOD CHEMISTRY (3) Metastatic cancer Code(s): C79.9 - SECONDARY MALIGNANT NEOPLASM OF UNSPECIFIED SITE Assessment/Plan suspect leukocytosis is reactive and lact acidosis was due to dehydration/malignancy continue ceftriaxone- not sure he really has an infection- pleural effusions look transudative- clear yellow ua from SPT is notable for alot of epis- suspect contamination from tube will f/u cultures oncology evaluation ?palliative care
[2020-08-23 17:22] LABS: BODY FLUID MACROPHAGES 20 %; BODY FLUID MONOCYTE 25 %
--- NOTE | 2020-08-23 17:50 | PN ---
Physical Exam: SUBJECTIVE: Patient seen and examined at bedside at bedside. Complaining of dysphagia. S/p Chest tube today right side. OBJECTIVE: Vital Signs Period Temp Pulse Resp BP Sys/Ag Pulse Ox Last 24 Hr 98.1 F-98.4 F 81-123 18-24 115-141/69-92 93-100 GENERAL: Cachectic HEAD: Normal with no signs of trauma. NECK: Trachea midline, full range of motion, supple. LUNGS: Decreased breath sounds HEART: Irregular ABDOMEN: Soft, nondistended and nontender : Phimosis, palpable inguinal lymphadenopathy bilaterally. Penis and scrotum with thickened skin. EXTREMITIES: No CCE NEUROLOGICAL: Cranial nerves II through XII grossly intact. PSYCH: Normal mood, normal affect. SKIN: Dermatitis RLE. Laboratory Results - last 24 hr 08/22/20 08/22/20 08/22/20 18:30 19:00 21:25 WBC RBC Hgb Hct MCV MCH MCHC RDW Plt Count MPV Absolute Neuts (auto) Neutrophils % Lymphocytes % Monocytes % Eosinophils % Basophils % Nucleated RBC % Sodium Potassium Chloride Carbon Dioxide Anion Gap BUN Creatinine Est GFR (CKD-EPI)AfAm Est GFR (CKD-EPI)NonAf Random Glucose Lactic Acid 2.1 H Calcium Phosphorus Magnesium Total Bilirubin AST ALT Alkaline Phosphatase Troponin I Total Protein Albumin Urine Color Yellow Urine Appearance Cloudy Urine pH 5.0 Ur Specific [place] 1.024 Urine Protein 2+ H Urine Glucose (UA) Negative Urine Ketones 2+ H Urine Blood 3+ H Urine Nitrite Negative Urine Bilirubin Negative Urine Urobilinogen 1.0 Ur Leukocyte Esterase 1+ H Urine WBC (Auto) 77 Urine RBC (Auto) 1772 Urine Casts (Auto) 7 U Pathogenic Cast Auto Negative U Epithel Cells (Auto) >36 Urine Bacteria (Auto) 620.4 Fluid Source Fluid WBC Fluid RBC Stool Occult Blood Negative 08/23/20 08/23/20 08/23/20 02:00 02:00 06:23 WBC 10.9 H RBC 4.48 Hgb 11.4 L Hct 35.9 MCV 80.1 MCH 25.5 L MCHC 31.9 L RDW 15.8 Plt Count 382 MPV 8.1 Absolute Neuts (auto) 9.3 H Neutrophils % 85.0 H Lymphocytes % 5.3 L D Monocytes % 8.9 Eosinophils % 0.4 D Basophils % 0.4 Nucleated RBC % 0 Sodium Potassium Chloride Carbon Dioxide Anion Gap BUN Creatinine Est GFR (CKD-EPI)AfAm Est GFR (CKD-EPI)NonAf Random Glucose Lactic Acid 1.7 Calcium Phosphorus Magnesium Total Bilirubin AST ALT Alkaline Phosphatase Troponin I < 0.02 Total Protein Albumin Urine Color Urine Appearance Urine pH Ur Specific [place] Urine Protein Urine Glucose (UA) Urine Ketones Urine Blood Urine Nitrite Urine Bilirubin Urine Urobilinogen Ur Leukocyte Esterase Urine WBC (Auto) Urine RBC (Auto) Urine Casts (Auto) U Pathogenic Cast Auto U Epithel Cells (Auto) Urine Bacteria (Auto) Fluid Source Fluid WBC Fluid RBC Stool Occult Blood 08/23/20 08/23/20 06:23 13:45 WBC RBC Hgb Hct MCV MCH MCHC RDW Plt Count MPV Absolute Neuts (auto) Neutrophils % Lymphocytes % Monocytes % Eosinophils % Basophils % Nucleated RBC % Sodium 137 Potassium 4.6 Chloride 101 Carbon Dioxide 28 Anion Gap 8 BUN 33.2 H Creatinine 1.2 Est GFR (CKD-EPI)AfAm 71.08 Est GFR (CKD-EPI)NonAf 61.33 Random Glucose 86 Lactic Acid Calcium 8.1 L Phosphorus 4.2 Magnesium 2.3 Total Bilirubin 0.4 AST 77 H ALT 21 Alkaline Phosphatase 120 H Troponin I Total Protein 5.2 L Albumin 2.3 L Urine Color Urine Appearance Urine pH Ur Specific [place] Urine Protein Urine Glucose (UA) Urine Ketones Urine Blood Urine Nitrite Urine Bilirubin Urine Urobilinogen Ur Leukocyte Esterase Urine WBC (Auto) Urine RBC (Auto) Urine Casts (Auto) U Pathogenic Cast Auto U Epithel Cells (Auto) Urine Bacteria (Auto) Fluid Source Pleural Fluid WBC 403 Fluid RBC 1164 Stool Occult Blood Active Medications Generic Name Dose Route Start Last Admin Trade Name Lita PRN Reason Stop Dose Admin Cholecalciferol 800 unit 08/22/20 22:00 08/23/20 09:14 Vitamin D3 - PO 800 unit DAILY LUIS ANTONIO Administration Docusate Sodium 100 mg 08/23/20 10:00 08/23/20 09:17 Colace - PO Not Given BID LUIS ANTONIO Sodium Chloride 1,000 mls @ 42 mls/hr 08/22/20 21:45 08/22/20 22:49 Normal Saline - IV 42 mls/hr ASDIR LUIS ANTONIO Administration Azithromycin 500 mg in 250 mls @ 250 mls/hr 08/23/20 22:04 Zithromax 500mg Ivpb (Pre-Docked) IVPB 08/23/20 23:03 ONCE ONE Ceftriaxone Sodium 1 gm/ 50 mls @ 100 mls/hr 08/23/20 10:00 08/23/20 09:13 Dextrose IVPB 100 mls/hr DAILY LUIS ANTONIO Administration Oxycodone HCl 10 mg 08/22/20 23:30 08/23/20 10:01 Oxycontin - PO 10 mg BID LUIS ANTONIO Administration Oxycodone HCl 5 mg 08/22/20 23:21 Roxicodone - PO Q6H PRN PAIN LEVEL 7 - 10 Pantoprazole Sodium 40 mg 08/24/20 10:00 Protonix Iv IVPUSH DAILY LUIS ANTONIO Polyethylene Glycol 17 gm 08/23/20 10:00 08/23/20 09:18 Miralax (For Daily Use) - PO 17 gm BID LUIS ANTONIO Administration ASSESSMENT/PLAN: 69-year-old man with a history of unspecified urologic metastatic cancer, suprapubic catheter, hemorrhoids, chronic constipation presents with sepsis secondary to complicated UTI, failure to thrive, extensive bilateral pleural effusions, worsening dysphasia #Urosepsis likely 2/2 indwelling Suprapubic cath Rocephin -lactate trended down, afebrile -f/u cultures #Metastatic Urethral Carcinoma -Patient states he was diagnosed approximately 2 years ago. Will obtain records from [facility]. States he is currently not on any chemotherapy or cancer treatment. -Onc on board. Recs appreciated #Failure to thrive Dietitian #Severe protein calorie malnutrition dietitian #Dysphasia To both liquids and solids. States he has not been able to eat much in the last 4 days GI on board--> recommending SWALLOW EVALUATION, PPI , ESOPHAGRAM, BOWEL REGIMEN. #Bilateral pleural effusions -As appreciated on CT Chest. S/p right sided Chest tube. Draining copious amounts of fluid. Tentatively will undergo second chest tube on contralateral side. Pulmonary on board. Recs appreciated #FEN -No Fluids -Dysphagia Puree -Monitor Electrolytes #DVT ppx: -SCDs Dispo: -Tele Visit type - Emergency Visit Emergency Visit: Yes ED Registration Date: 08/22/20 Care time: The patient presented to the Emergency Department on the above date and was hospitalized for further evaluation of their emergent condition. - New Patient This patient is new to me today: Yes Date on this admission: 08/23/20 - Critical Care Critical Care patient: No - Discharge Referral Referred to [facility] No - Medication Review Med list reviewed for High Risk Meds patients 65 and older: Yes ATTENDING PHYSICIAN STATEMENT I saw and evaluated the patient. I reviewed the resident's note and discussed the case with the resident. I agree with the resident's findings and plan as documented. SUBJECTIVE: OBJECTIVE: ASSESSMENT AND PLAN:
[2020-08-23] MEDS ORDERED: ACETAMINOPHEN 1000 MG/100 ML VIAL (NON FORMULARY) IVPB ONE (17:51)
--- NOTE | 2020-08-23 20:05 | PN ---
Progress Note (short form) - Note Progress Note: chart revd for 69 yom w h/o adv urethral cancer adm w abd pain, dysphagia. has presumed urosepsis in setting of suprapubic cath, recent admission w nephrolithiasis. Imaging discloses bone mets, large pleural effns Per urol note 08/02 noted to have signif pod and pall care advised. I have reached out to Dr Mendoza for more info. pls obtain records from his oncologist full consult to follow pend covid status
[2020-08-23] MEDS ORDERED: AZITHROMYCIN IVPB 500 MG/250 ML BAG IVPB ONE (22:04)
[2020-08-23] MEDS: SODIUM CHLORIDE 1,000 ML IV SCH (22:28)
[2020-08-24 06:40] LABS: HEMATOCRIT 39.2 % (35.4-49); HEMOGLOBIN 12.5 GM/dL (11.7-16.9); MCH 25.4 pg (25.7-33.7); MCHC 31.8 g/dl (32.0-35.9); MEAN CELL VOLUME 79.9 fl (80-96); MEAN PLT VOLUME 8.2 fl (7.5-11.1); PLATELET COUNT 402 K/MM3 (134-434); RDW 16.3 % (11.9-15.9); WHITE BLOOD COUNT 11.1 K/mm3 (4.0-10.0)
[2020-08-24 07:05] LABS: BLOOD UREA NITROGEN 32.8 mg/dL (7-18); CALCIUM 8.3 mg/dL (8.5-10.1); CREATININE 1.3 mg/dL (0.55-1.3); MAGNESIUM 2.4 mg/dL (1.8-2.4); PHOSPHOROUS 4.2 mg/dL (2.5-4.9); POTASSIUM 4.9 mmol/L (3.5-5.1)
--- NOTE | 2020-08-24 07:47 | CONS ---
DATE OF CONSULTATION: 08/23/2020 PULMONARY CONSULTATION REFERRING PHYSICIAN: Sridhar Torres MD HISTORY OF PRESENT ILLNESS: The patient is a 69-year-old male with past medical history of metastatic renal CA apparently diagnosed in 1967 currently with suprapubic catheter with metastases to the bone, neck, prostate, inguinal node involvement, chronic constipation, hemorrhoids, admitted to [facility] with complaint of 4-day history of diffuse abdominal pain, worsening dysphagia, constipation, shortness of breath, and weight loss approximately 20 pounds over the last 3 months. Apparently he described the abdominal pain on admission as intermittent, 7 out of 10 in severity, with radiation to the groin. He denies any nausea or vomiting. He states that he passed a large hard celestino-colored stool prior to admission covered with blood with minimal relief from the abdominal pain. Patient has also been complaining of increasing shortness of breath and dyspnea on exertion when he walks a few feet and gets markedly dyspneic. He is a nonsmoker. He denies any history of occupational exposure to chemicals or fumes. Also complained of cough productive of yellow sputum, no hemoptysis. On admission, the patient underwent a CT of the chest and abdomen which revealed a large bilateral pleural effusion with the presence of atelectasis and pelvic ascites. PAST MEDICAL HISTORY: Again includes metastatic renal CA with metastases to the prostate, neck, inguinal lymph node involvement as well as bones, hemorrhoids, chronic constipation. Also a history of suprapubic catheter. CURRENT MEDICATIONS: Include: 1. Zithromax. 2. Ceftriaxone. 3. Colace. 4. MiraLAX. 5. . 6. OxyContin. 7. Roxicodone. 8. Protonix. 9. Vitamin D3. REVIEW OF SYSTEMS: Positive shortness of breath. Positive dyspnea on exertion. No chest pain. Positive abdominal pain. No fever. No chills. No hemoptysis. PHYSICAL EXAMINATION: General: The patient is a cachectic male, well developed, awake, alert, currently in no acute distress. Vital Signs: He is currently afebrile. Blood pressure 122/72, respiratory rate is 20, O2 saturation is 97% on 2 L nasal cannula. HEENT: Normocephalic, atraumatic. Neck: Supple. Heart: Regular S1, S2. Chest: Symmetric breath sounds bilaterally. Abdomen: Soft, bowel sounds present. Extremities: No cyanosis, edema. LABORATORIES: WBC is 10.9, hemoglobin 11.4, hematocrit 35.9 with a platelet count of 382,000. Chemistries: BUN 33, creatinine 1.2. Ferritin is 2665. LDH 120. AST is 77. Chest CT as noted earlier. IMPRESSION: 1. Dyspnea secondary to large bilateral pleural effusion, rule out congestive heart failure, rule out malignant. 2. Metastatic renal carcinoma with bone and prostate metastases. 3. Abdominal pain . 4. Dysphagia. PLAN: Supplemental O2. Therapeutic and diagnostic thoracentesis with pigtail catheter insertion to drain his pleural effusion. Obtain echo. Cardiology and GI evaluation. Also oncology consult. Further recommendations pending results of pleural fluid analysis. MIGUEL HASSAN M.D. [id number]
[2020-08-24] MEDS ORDERED: DEXTROSE 5%-WATER - 50 ML IVPB ONE (09:26)
[2020-08-24] MEDS ORDERED: cefTRIAXone SODIUM 1 GM VIAL ONE (09:26)
[2020-08-24] MEDS: CEFTRIAXONE 1 GM in DEXTROSE 5%-WATER - 50 ML IVPB SCH (09:29)
[2020-08-24] MEDS: CHOLECALCIFEROL (VIT D3) 400 UNIT (10 MCG) TABLET PO SCH (09:31)
[2020-08-24] MEDS: oxyCODONE HCL 10 MG SUSTAINED ACTING TABLET PO SCH ×2 (09:31→21:02)
[2020-08-24] MEDS: DOCUSATE SODIUM 100 MG CAPSULE (FP) PO SCH ×2 (09:31→21:04)
[2020-08-24] MEDS: PANTOPRAZOLE SODIUM 40 MG VIAL IVPUSH SCH (09:35)
[2020-08-24] MEDS: POLYETHYLENE GLYCOL 3350 119 GM BTL PO SCH ×2 (09:35→21:02)
--- NOTE | 2020-08-24 09:54 | EKG ---
Test Reason : Blood Pressure : / mmHG Vent. Rate : 120 BPM Atrial Rate : 120 BPM P-R Int : 112 ms QRS Dur : 078 ms QT Int : 314 ms P-R-T Axes : 020 033 071 degrees QTc Int : 443 ms SINUS TACHYCARDIA WITH PREMATURE ATRIAL COMPLEXES IN A PATTERN OF BIGEMINY OTHERWISE NORMAL ECG WHEN COMPARED WITH ECG OF 22-AUG-2020 14:44, PREVIOUS ECG HAS UNDETERMINED RHYTHM, NEEDS REVIEW Confirmed by HARDIK PAULINO, MELI ([id number]) on 08/24/2020 9:54:14 AM Referred By: Confirmed By:MELI DYE MD
[2020-08-24] MEDS ORDERED: PANTOPRAZOLE SODIUM 40 MG in SODIUM CHLORIDE 100 ML IVPB SCH (10:00)
--- NOTE | 2020-08-24 11:18 | PN ---
Progress Note, MACHINE I ENGRAVER - Note Progress Note: Not eating or drinking. c/o pain neck/chest. Dislikes taste of any trial and f eels it "doesn't go down"' Significant weight loss Pending esophagram ordered by GI. To perform MBS first, to r/o aspiration/stasis followed by esophagram as discussed with PMD/GI. Pt in agreement
--- NOTE | 2020-08-24 12:37 | PN ---
Teaching Attending Note Name of Resident: Ryder Guerrero ATTENDING PHYSICIAN STATEMENT I saw and evaluated the patient. I reviewed the resident's note and discussed the case with the resident. I agree with the resident's findings and plan as documented. SUBJECTIVE: Seen and examined at bedside. Chest tube draining over 700 cc. Patient reports he is dizzy when sitting up. Orthostatics negative. Still reporting shortness of breath. Will consider additional chest tube/Pleurx catheter. To undergo evaluation for dysphasia this afternoon and to have palliative care meeting with his sister this afternoon OBJECTIVE Last Vital Signs Temp Pulse Resp BP Pulse Ox 98.3 F 56 L 18 109/69 98 08/24/20 06:00 08/24/20 06:00 08/24/20 06:00 08/24/20 06:00 08/23/20 21:00 PE: Per resident note Labs/Imaging: reviewed ASSESSMENT/PLAN 69-year-old man with a history of unspecified urologic metastatic cancer, suprapubic catheter, hemorrhoids, chronic constipation presents with sepsis secondary to complicated UTI, failure to thrive, extensive bilateral pleural effusions, worsening dysphasia #Severe sepsis secondary to presumed urinary tract infection and possible parapneumonic effusions: Improving Polymicrobial urine culture continue ceftriaxone -lactate trended down -f/u cultures #Metastatic urethral cancer Per patient after unsuccessful immunotherapy was offered chemotherapy but refused and was told by his oncologist he had 5 to 6 months to live approximately 8 months ago. -is currently full code Obtain records from [facility] Palliative care to meet with pt and family today Oncology consult #Failure to thrive Dietitian #Severe protein calorie malnutrition dietitian #Dysphasia To both liquids and solids. States he has not been able to eat much in the last 4 days GI on board: Appreciate recommendations -barium swallow today #Bilateral pleural effusions Does not appear externally fluid overloaded, most likely represents malignant pleural effusions. Pulmonary on board: appreciate recs -s/p R sided chest tube. Pleural fluid contains likely malignant cells-->path review -will consider L sided pleurex -f/u pleural studies Dispo: Most likely has terminal cancer. Will obtain outside records and based on information provide patient with treatment or palliative management
--- NOTE | 2020-08-24 13:21 | PN ---
Progress Note (short form) - Note Progress Note: Awake and alert. Mildly tachypneic at rest. Continued drainage of yellow pleural effusion. Reports feeling dizzy and weak. Intake & Output 08/21/20 08/22/20 08/23/20 08/24/20 23:59 23:59 23:59 23:59 Intake Total 468 336 Output Total 750 1100 Balance -282 -764 Weight 129 lb 129 lb Last Vital Signs Temp Pulse Resp BP Pulse Ox 98.3 F 56 L 18 109/69 98 08/24/20 06:00 08/24/20 06:00 08/24/20 06:00 08/24/20 06:00 08/23/20 21:00 Active Medications Cholecalciferol (Vitamin D3 -) 800 unit PO DAILY [facility] Last Admin: 08/24/20 09:31 Dose: 800 unit Documented by: Docusate Sodium (Colace -) 100 mg PO BID [facility] Last Admin: 08/24/20 09:31 Dose: 100 mg Documented by: Sodium Chloride (Normal Saline -) 1,000 mls @ 42 mls/hr IV ASDIR [facility] Last Admin: 08/23/20 22:28 Dose: 42 mls/hr Documented by: Ceftriaxone Sodium 1 gm/ (Dextrose) 50 mls @ 100 mls/hr IVPB DAILY [facility] Last Admin: 08/24/20 09:29 Dose: 100 mls/hr Documented by: Oxycodone HCl (Oxycontin -) 10 mg PO BID [facility] Last Admin: 08/24/20 09:31 Dose: 10 mg Documented by: Oxycodone HCl (Roxicodone -) 5 mg PO Q6H PRN PRN Reason: PAIN LEVEL 7 - 10 Pantoprazole Sodium (Protonix Iv) 40 mg IVPUSH DAILY [facility] Last Admin: 08/24/20 09:35 Dose: 40 mg Documented by: Polyethylene Glycol (Miralax (For Daily Use) -) 17 gm PO BID [facility] Last Admin: 08/24/20 09:35 Dose: Not Given Documented by: GENERAL: Cachectic HEAD: Normal with no signs of trauma. NECK: Trachea midline, full range of motion, supple. LUNGS: Decreased breath sounds, right pleural catheter without and air leak HEART: Irregular ABDOMEN: Soft, nondistended and nontender EXTREMITIES: No CCE NEUROLOGICAL: Non-focal PSYCH: Normal mood, normal affect. SKIN: Dermatitis RLE. Laboratory Results - last 24 hr 08/22/20 08/23/20 08/24/20 15:30 13:45 05:52 WBC 11.1 H RBC 4.90 Hgb 12.5 Hct 39.2 MCV 79.9 L MCH 25.4 L MCHC 31.8 L RDW 16.3 H Plt Count 402 MPV 8.2 Sodium Potassium Chloride Carbon Dioxide Anion Gap BUN Creatinine Est GFR (CKD-EPI)AfAm Est GFR (CKD-EPI)NonAf Random Glucose Calcium Phosphorus Magnesium Fluid Source Pleural Fluid WBC 403 Fluid RBC 1164 Fluid Neutrophils 13 Fluid Lymphocytes 27 Fluid Other Cells 15 Pleural Monocytes 25 Pleural Macrophages 20 Pleural Diff Comment See comment COVID-19 (SCOTTY) Not detected 08/24/20 05:52 WBC RBC Hgb Hct MCV MCH MCHC RDW Plt Count MPV Sodium 136 Potassium 4.9 Chloride 100 Carbon Dioxide 27 Anion Gap 8 BUN 32.8 H Creatinine 1.3 Est GFR (CKD-EPI)AfAm 64.52 Est GFR (CKD-EPI)NonAf 55.67 Random Glucose 99 Calcium 8.3 L Phosphorus 4.2 Magnesium 2.4 Fluid Source Fluid WBC Fluid RBC Fluid Neutrophils Fluid Lymphocytes Fluid Other Cells Pleural Monocytes Pleural Macrophages Pleural Diff Comment COVID-19 (SCOTTY) IMP DYSPNEA LARGE BILATERAL PLEURAL EFFUSIONS ? CHF,? MALIGNANT METASTATIC PENILE CA,BONE METS,PROSTATE ABDOMINAL PAIN PELVIC ASCITES DYSPHAGIA LACTIC ACIDOSIS PLAN SUPPLEMENTAL O2 THERAPEUTIC/DIAGNOSTIC THORACENTESIS CONSIDER PIGTAIL CATH INSERTION ECHO ONCOLOGY EVALUATION CHECK ORTHSTSTATICS AND MAY NEED IVF Problem List - Problems (1) Dyspnea Code(s): R06.00 - DYSPNEA, UNSPECIFIED (2) Pleural effusion Code(s): J90 - PLEURAL EFFUSION, NOT ELSEWHERE CLASSIFIED Dr Mackey
--- NOTE | 2020-08-24 14:24 | PN ---
Progress Note, Physician Chief Complaint: Still short of breath Sinus on tele with sinus tach and pac's History of Present Illness: 69 year old male with a pmhx of metastatic penile cancer s/p suprapubic catheter with mets to prostate, neck, and inguinal lymph nodes admitted with sob, diffuse abdominal pain, and dysphagia. Noted 20lb weight loss. Increasing fermin with last few weeks with an episode of chest pain a few weeks ago. Noted wbc 11.[address] chest with b/l pleural effusions Elevated ferritin and ldh EKG sinus tachycardia with pac's. - Current Medication List Current Medications: Active Medications Cholecalciferol (Vitamin D3 -) 800 unit PO DAILY [facility] Last Admin: 08/24/20 09:31 Dose: 800 unit Documented by: Docusate Sodium (Colace -) 100 mg PO BID [facility] Last Admin: 08/24/20 09:31 Dose: 100 mg Documented by: Sodium Chloride (Normal Saline -) 1,000 mls @ 42 mls/hr IV ASDIR [facility] Last Admin: 08/23/20 22:28 Dose: 42 mls/hr Documented by: Ceftriaxone Sodium 1 gm/ (Dextrose) 50 mls @ 100 mls/hr IVPB DAILY [facility] Last Admin: 08/24/20 09:29 Dose: 100 mls/hr Documented by: Oxycodone HCl (Oxycontin -) 10 mg PO BID [facility] Last Admin: 08/24/20 09:31 Dose: 10 mg Documented by: Oxycodone HCl (Roxicodone -) 5 mg PO Q6H PRN PRN Reason: PAIN LEVEL 7 - 10 Pantoprazole Sodium (Protonix Iv) 40 mg IVPUSH DAILY [facility] Last Admin: 08/24/20 09:35 Dose: 40 mg Documented by: Polyethylene Glycol (Miralax (For Daily Use) -) 17 gm PO BID [facility] Last Admin: 08/24/20 09:35 Dose: Not Given Documented by: - Objective Vital Signs: Vital Signs Temperature 98.3 F 08/24/20 06:00 Pulse Rate 56 L 08/24/20 06:00 Respiratory Rate 18 08/24/20 06:00 Blood Pressure 109/69 08/24/20 06:00 O2 Sat by Pulse Oximetry (%) 98 08/23/20 21:00 Constitutional: Yes: No Distress Neck: Yes: Supple. No: Thyromegaly Cardiovascular: Yes: Tachycardia, S1, S2 Respiratory: Yes: Diminished Gastrointestinal: Yes: Soft Edema: No Labs: CBC, BMP 08/24/20 05:52 08/24/20 05:52 INR, PTT INR 1.09 (0.83-1.09) 08/22/20 15:25 Problem List - Problems (1) Dyspnea Code(s): R06.00 - DYSPNEA, UNSPECIFIED Assessment/Plan 69 year old male with a pmhx of metastatic penile cancer diagnosed 1968 s/p suprapubic catheter with mets to prostate, neck, and inguinal lymph nodes admitted with sob, diffuse abdominal pain, and dysphagia. Noted 20lb weight loss. Increasing fermin with last few weeks with an episode of chest pain a few weeks a go. Noted wbc 11.[address] chest with b/l pleural effusions Elevated ferritin and ldh EKG sinus tachycardia with pac's. 1) CV -Sinus tachycardia on tele with pac's. Would not start any beta blockers for pac's given low normal bp. -Continue IV abx as per primary team for urosepsis -covid neg -S/p chest tube -pleural effusions are likely malignant and not chf given rest of exam does not appear to coincide with chf but will plan for echocardiogram -Consider palliative care given patients diagnosis
--- NOTE | 2020-08-24 14:54 | PN ---
Progress Note (short form) - Note Progress Note: MBS performed: awaiting official read, however, contrast seems to empty from esophagus without hang up. Spoke with Nella Esteban: Patient was fearful with mild aspiration when not swallowing. Recommended possible CT neck, appetite stimulant.
--- NOTE | 2020-08-24 17:34 | PN ---
Physical Exam: SUBJECTIVE: Patient seen and examined at bedside. S/p pigtail catheter insertion yesterday. Also had left sided pigtail placed this afternoon. OBJECTIVE: Vital Signs Period Temp Pulse Resp BP Sys/Ag Pulse Ox Last 24 Hr 97.7 F-98.3 F 56-122 17-20 109-123/69-75 98-98 GENERAL: Cachectic NAD HEAD: Normal with no signs of trauma. NECK: Trachea midline, full range of motion, supple. LUNGS: Decreased breath sounds. Chest tubes bilaterally HEART: Irregular ABDOMEN: Soft, nondistended and nontender : Phimosis, palpable inguinal lymphadenopathy bilaterally. Penis and scrotum with thickened skin. EXTREMITIES: No CCE NEUROLOGICAL: Cranial nerves II through XII grossly intact. PSYCH: Normal mood, normal affect. SKIN: Dermatitis RLE. Laboratory Results - last 24 hr 08/22/20 08/23/20 08/24/20 15:30 13:45 05:52 WBC 11.1 H RBC 4.90 Hgb 12.5 Hct 39.2 MCV 79.9 L MCH 25.4 L MCHC 31.8 L RDW 16.3 H Plt Count 402 MPV 8.2 Sodium Potassium Chloride Carbon Dioxide Anion Gap BUN Creatinine Est GFR (CKD-EPI)AfAm Est GFR (CKD-EPI)NonAf Random Glucose Calcium Phosphorus Magnesium Fluid Neutrophils 13 Fluid Lymphocytes 27 Fluid Other Cells 15 Pleural Monocytes 25 Pleural Macrophages 20 Pleural Diff Comment See comment COVID-19 (SCOTTY) Not detected 08/24/20 05:52 WBC RBC Hgb Hct MCV MCH MCHC RDW Plt Count MPV Sodium 136 Potassium 4.9 Chloride 100 Carbon Dioxide 27 Anion Gap 8 BUN 32.8 H Creatinine 1.3 Est GFR (CKD-EPI)AfAm 64.52 Est GFR (CKD-EPI)NonAf 55.67 Random Glucose 99 Calcium 8.3 L Phosphorus 4.2 Magnesium 2.4 Fluid Neutrophils Fluid Lymphocytes Fluid Other Cells Pleural Monocytes Pleural Macrophages Pleural Diff Comment COVID-19 (SCOTTY) Active Medications Generic Name Dose Route Start Last Admin Trade Name Freq PRN Reason Stop Dose Admin Cholecalciferol 800 unit 08/22/20 22:00 08/24/20 09:31 Vitamin D3 - PO 800 unit DAILY [facility] Administration Docusate Sodium 100 mg 08/23/20 10:00 08/24/20 09:31 Colace - PO 100 mg BID [facility] Administration Sodium Chloride 1,000 mls @ 42 mls/hr 08/22/20 21:45 08/23/20 22:28 Normal Saline - IV 42 mls/hr ASDIR [facility] Administration Ceftriaxone Sodium 1 gm/ 50 mls @ 100 mls/hr 08/23/20 10:00 08/24/20 09:29 Dextrose IVPB 100 mls/hr DAILY [facility] Administration Oxycodone HCl 10 mg 08/22/20 23:30 08/24/20 09:31 Oxycontin - PO 10 mg BID [facility] Administration Oxycodone HCl 5 mg 08/22/20 23:21 Roxicodone - PO Q6H PRN PAIN LEVEL 7 - 10 Pantoprazole Sodium 40 mg 08/24/20 10:00 08/24/20 09:35 Protonix Iv IVPUSH 40 mg DAILY [facility] Administration Polyethylene Glycol 17 gm 08/23/20 10:00 08/24/20 09:35 Miralax (For Daily Use) - PO Not Given BID [facility] ASSESSMENT/PLAN: 69-year-old man with a history of unspecified urologic metastatic cancer, suprapubic catheter, hemorrhoids, chronic constipation presents with sepsis secondary to complicated UTI, failure to thrive, extensive bilateral pleural effusions, worsening dysphasia #Urosepsis likely 2/2 indwelling Suprapubic cath Rocephin -lactate trended down, afebrile -f/u cultures #Metastatic Urothelial Cell Carcinoma of Urethra -Records obtained from [facility]. Biopsy 10/2018 of penile urethra revealed high grade carcinoma with necrosis, meatus of penis biopsy showed high grade carcinoma invading fibrous tissue, inguinal LN R high grade carcinoma consistent with metastatic carcinoma. Patient was treated with Pembrolizumab at [facility] 11/2018. 07/01/19--> saw Dr Corcoran for treatment pembro cycle 11, chemoradiation therapy recommended, patient declined. Started RT with Dr Zan Ac in April but only had 3 treatments; he then reported fatigue and developed and developed GI symptoms -Patient states he was diagnosed approximately 2 years ago. Will obtain records from [facility]. States he is currently not on any chemotherapy or cancer treatment. -Onc on board. Recs appreciated #Failure to thrive Dietitian #Severe protein calorie malnutrition dietitian #Dysphasia -To both liquids and solids. States he has not been able to eat much in the last 4 days GI on board--> recommending SWALLOW EVALUATION, PPI , ESOPHAGRAM, BOWEL REGIMEN. -MBS--> Patient fearful of swallowing with intermittent penetration/aspiration of trace to mild severity on thin liquid. Patient complains of discomfort when he is swallowing. -Speech pathology recommending dysphasia puree with nectar thickened liquids. Ensure pudding/Magic cup. #Bilateral pleural effusions -As appreciated on CT Chest. S/p right sided Chest tube. Draining copious amounts of fluid. Left pigtail inserted today. Pleural culture results pending. Pulmonary on board. Recs appreciated #FEN -May administer fluids if patient becomes hypotonic. Discussed with Pulmonology. -Dysphagia Puree -Monitor Electrolytes #DVT ppx: -SCDs Dispo: -Tele. [facility] discussion scheduled for tomorrow with Marilyn, patient, and patient's sister. Orthodontic Technician Assistant will attend. Visit type - Emergency Visit Emergency Visit: Yes ED Registration Date: 08/22/20 Care time: The patient presented to the Emergency Department on the above date and was hospitalized for further evaluation of their emergent condition. - New Patient This patient is new to me today: No - Critical Care Critical Care patient: No - Discharge Referral Referred to [facility] Med P.C.: No - Medication Review Med list reviewed for High Risk Meds patients 65 and older: Yes ATTENDING PHYSICIAN STATEMENT I saw and evaluated the patient. I reviewed the resident's note and discussed the case with the resident. I agree with the resident's findings and plan as documented. SUBJECTIVE: OBJECTIVE: ASSESSMENT AND PLAN:
[2020-08-24 19:01] LABS: BF WBC & OTHER NUCLEATED CELLS 862 /mm3; BODY FLUID MONOCYTE 10 %
[2020-08-24] MEDS: SODIUM CHLORIDE 1,000 ML IV SCH (21:05)
[2020-08-25] MEDS: oxyCODONE HCL 5 MG TABLET PO PRN ×2 (04:47→14:48)
[2020-08-25 07:03] LABS: HEMATOCRIT 37.4 % (35.4-49); HEMOGLOBIN 11.8 GM/dL (11.7-16.9); MCH 26.4 pg (25.7-33.7); MCHC 31.7 g/dl (32.0-35.9); MEAN CELL VOLUME 83.3 fl (80-96); MEAN PLT VOLUME 8.2 fl (7.5-11.1); PLATELET COUNT 332 K/MM3 (134-434); RBC 4.49 M/mm3 (4.00-5.60); RDW 15.9 % (11.9-15.9); WHITE BLOOD COUNT 10.6 K/mm3 (4.0-10.0)
[2020-08-25 07:09] LABS: BLOOD UREA NITROGEN 40.1 mg/dL (7-18); CALCIUM 8.1 mg/dL (8.5-10.1); CREATININE 1.3 mg/dL (0.55-1.3); MAGNESIUM 2.3 mg/dL (1.8-2.4); PHOSPHOROUS 3.9 mg/dL (2.5-4.9); POTASSIUM 4.6 mmol/L (3.5-5.1)
[2020-08-25] MEDS ORDERED: cefTRIAXone SODIUM 1 GM VIAL ONE (09:24)
[2020-08-25] MEDS ORDERED: DEXTROSE 5%-WATER - 50 ML IVPB ONE (09:24)
[2020-08-25] MEDS: SODIUM CHLORIDE 1,000 ML IV SCH ×2 (09:41→21:32)
[2020-08-25] MEDS: CEFTRIAXONE 1 GM in DEXTROSE 5%-WATER - 50 ML IVPB SCH (09:41)
[2020-08-25] MEDS: PANTOPRAZOLE SODIUM 40 MG VIAL IVPUSH SCH (09:47)
[2020-08-25] MEDS: POLYETHYLENE GLYCOL 3350 119 GM BTL PO SCH ×2 (09:48→21:33)
[2020-08-25] MEDS: DOCUSATE SODIUM 100 MG CAPSULE (FP) PO SCH ×2 (09:48→21:32)
[2020-08-25] MEDS: oxyCODONE HCL 10 MG SUSTAINED ACTING TABLET PO SCH ×2 (09:49→21:41)
[2020-08-25] MEDS: CHOLECALCIFEROL (VIT D3) 400 UNIT (10 MCG) TABLET PO SCH (09:50)
--- NOTE | 2020-08-25 10:30 | PN ---
Progress Note, RECEPTION CLERK - Note Progress Note: MBS completed. Puree/nectar ordered. Refusing all PO Selected Entries 08/24/20 08/24/20 08/24/20 06:00 10:58 13:15 Breakfast 0 Diet Tolerated Fair Refused Lunch 0 Pulse Rate Blood Pressure 08/24/20 08/25/20 08/25/20 23:00 02:00 06:00 Breakfast Diet Tolerated Refused Lunch Pulse Rate 104 H 111 H Blood Pressure 110/64 132/90 08/25/20 09:22 Breakfast Diet Tolerated Refused Lunch Pulse Rate Blood Pressure Laboratory Tests 08/22/20 08/23/20 08/24/20 15:30 06:23 05:52 WBC 10.9 H 11.1 H COVID-19 (SCOTTY) Not detected 08/25/20 05:35 WBC 10.6 H COVID-19 (SCOTTY) Concur with Nystatin order. Pt requesting toast, eg salad, thin water. Reviewed with [id number] team. Agree to liberalize diet, soft/thin trials,as accepted and tolerated. Considering appetite stimulant Palliative care f/u
--- NOTE | 2020-08-25 12:03 | PN ---
Progress Note, Physician History of Present Illness: pulmonary alert,less dyspneic,s/p insertion left pigtail catheter - Current Medication List Current Medications: Active Medications Cholecalciferol (Vitamin D3 -) 800 unit PO DAILY [facility] Last Admin: 08/25/20 09:50 Dose: 800 unit Documented by: Docusate Sodium (Colace -) 100 mg PO BID [facility] Last Admin: 08/25/20 09:48 Dose: Not Given Documented by: Sodium Chloride (Normal Saline -) 1,000 mls @ 42 mls/hr IV ASDIR [facility] Last Admin: 08/25/20 09:41 Dose: 42 mls/hr Documented by: Ceftriaxone Sodium 1 gm/ (Dextrose) 50 mls @ 100 mls/hr IVPB DAILY [facility] Last Admin: 08/25/20 09:41 Dose: 100 mls/hr Documented by: Nystatin (Nystatin Oral Suspension -) 500,000 units PO Q6HPO [facility] Oxycodone HCl (Oxycontin -) 10 mg PO BID [facility] Last Admin: 08/25/20 09:49 Dose: Not Given Documented by: Oxycodone HCl (Roxicodone -) 5 mg PO Q6H PRN PRN Reason: PAIN LEVEL 7 - 10 Last Admin: 08/25/20 04:47 Dose: 5 mg Documented by: Pantoprazole Sodium (Protonix Iv) 40 mg IVPUSH DAILY [facility] Last Admin: 08/25/20 09:47 Dose: 40 mg Documented by: Polyethylene Glycol (Miralax (For Daily Use) -) 17 gm PO BID [facility] Last Admin: 08/25/20 09:48 Dose: Not Given Documented by: - Objective Vital Signs: Vital Signs Temperature 97.9 F 08/25/20 10:00 Pulse Rate 104 H 08/25/20 10:00 Respiratory Rate 20 08/25/20 10:00 Blood Pressure 113/85 08/25/20 10:00 O2 Sat by Pulse Oximetry (%) 97 08/25/20 10:00 Constitutional: Yes: Calm, Thin Eyes: Yes: WNL HENT: Yes: WNL Neck: Yes: WNL Cardiovascular: Yes: Regular Rate and Rhythm, S1, S2 Respiratory: Yes: Diminished Gastrointestinal: Yes: Normal Bowel Sounds, Soft Extremities: Yes: WNL Edema: No Labs: CBC, BMP 08/25/20 05:35 08/25/20 05:35 INR, PTT INR 1.09 (0.83-1.09) 08/22/20 15:25 - ....Imaging Chest X-ray: Report Reviewed, Image Reviewed Problem List - Problems (1) Dyspnea Code(s): R06.00 - DYSPNEA, UNSPECIFIED (2) Pleural effusion Code(s): J90 - PLEURAL EFFUSION, NOT ELSEWHERE CLASSIFIED Assessment/Plan MP DYSPNEA LARGE BILATERAL PLEURAL EFFUSIONS ? CHF,? MALIGNANT METASTATIC PENILE CA,BONE METS,PROSTATE ABDOMINAL PAIN PELVIC ASCITES DYSPHAGIA LACTIC ACIDOSIS improved PLAN SUPPLEMENTAL O2 s/p PIGTAIL CATH INSERTION monitor pleural fluid output ECHO PENDING PLEURAL FLUID CHEMISTRIES,CYTOLOGY PENDING Problem List - Problems (1) Dyspnea Code(s): R06.00 - DYSPNEA, UNSPECIFIED (2) Pleural effusion Code(s): J90 - PLEURAL EFFUSION, NOT ELSEWHERE CLASSIFIED
--- NOTE | 2020-08-25 13:04 | PN ---
Progress Note (short form) - Note Progress Note: doesn't like the food willing to eat ensure pudding Vital Signs Period Temp Pulse Resp BP Sys/Ag Pulse Ox Last 24 Hr 97.9 F-98.3 F 56-111 17-21 110-132/58-90 97-98 cor-rrr lungs decreased bs at bases abd firm adenopath groin unchanged +SPT ext no edema +chest tube CBC, BMP 08/25/20 05:35 08/25/20 05:35 Microbiology 08/22/20 16:05 Urine - Urine Suprapubic Urine Culture - Preliminary Pseudomonas Aeruginosa Group D Strep Or Entero Coccus Non Lactose Fermenting Gnb#2 08/23/20 13:45 Pleural Fluid Gram Stain - Final 08/23/20 13:45 Pleural Fluid Body Fluid Culture - Final NO GROWTH OF AEROBIC ORGANISMS AFTER 48 HOURS INCUBATION 08/23/20 13:45 Pleural Fluid Anaerobic Culture - Final NO ANAEROBES WERE ISOLATED 08/22/20 18:30 Urine - Urine - Catheterized Urine Culture - Preliminary Achromobact Xylosoxidans Sp.xy Group D Strep Or Entero Coccus 08/24/20 15:45 Pleural Fluid CRISSY Preparation - Preliminary 08/24/20 15:45 Pleural Fluid Fungal Culture - Preliminary 08/24/20 15:45 Pleural Fluid AFB Smear Concentration - Preliminary 08/24/20 15:45 Pleural Fluid Mycobacterial Culture - Preliminary 08/22/20 15:30 Blood - Peripheral Venous Blood Culture - Preliminary NO GROWTH OBTAINED AFTER 48 HOURS, INCUBATION TO CONTINUE FOR 3 DAYS. 08/22/20 15:25 Blood - Peripheral Venous Blood Culture - Preliminary NO GROWTH OBTAINED AFTER 48 HOURS, INCUBATION TO CONTINUE FOR 3 DAYS. 08/23/20 13:45 Pleural Fluid AFB Smear Concentration - Final 08/23/20 13:45 Pleural Fluid Mycobacterial Culture - Preliminary 08/23/20 13:45 Pleural Fluid CRISSY Preparation - Preliminary 08/23/20 13:45 Pleural Fluid Fungal Culture - Preliminary a/p metastatic cancer bilateral pleural effusions s/p chest tube SPT no signs active infection d/c antibiotics Problem List - Problems (1) Leukocytosis Code(s): D72.829 - ELEVATED WHITE BLOOD CELL COUNT, UNSPECIFIED (2) Elevated lactic acid level Code(s): R79.89 - OTHER SPECIFIED ABNORMAL FINDINGS OF BLOOD CHEMISTRY (3) Metastatic cancer Code(s): C79.9 - SECONDARY MALIGNANT NEOPLASM OF UNSPECIFIED SITE
[2020-08-25] MEDS: NYSTATIN 500,000 UNITS/5 ML SUSPENSION PO SCH ×3 (13:07→23:55)
--- NOTE | 2020-08-25 13:11 | ECHO ---
Version: 1 Name: BRICE RAE Exam: Adult Echocardiogram Study Date: 08/25/2020, 10:14 AM Age: 69 Years MMode/2D Measurements & Calculations IVSd: 0.61 cm LVIDs: 3.0 cm LVIDd: 4.3 cm LVPWd: 0.72 cm LAV (MOD-bp): 28.0 ml ACS: 1.58 cm Ao root diam: 2.9 cm LVOT diam: 2.00 cm LA dimension: 2.8 cm Doppler Measurements & Calculations MV E max baljit: 72.8 cm/sec Med E/e': 9.2 MV A max baljit: 88.8 cm/sec Med Peak E' Baljit: 7.9 cm/sec MV E/A: 0.82 Lat E/e': 5.6 Lat Peak E' Baljit: 13.1 cm/sec Ao max P.1 mmHg MINAL(I,D): 3.4 cm Ao mean P.48 mmHg LV V1 mean: 73.1 cm/sec Ao V2 max: 112.7 cm/sec LV V1 mean P.6 mmHg TR max baljit: 237.5 cm/sec TR max P.9 mmHg Procedure The study was technically difficult with many images being suboptimal in quality. Left Ventricle Left ventricular systolic function is grossly normal. Ejection Fraction = 50-55%. The transmitral sp ectral Doppler flow pattern is suggestive of impaired LV relaxation. Regional wall motion abnormalities can not be excluded due to limited visualization. Right Ventricle The right ventricle is not well visualized. The right ventricular systolic function is grossly naomi l. Atria Normal left and right atrial size and function. Mitral Valve There is no mitral valve stenosis. There is trace mitral regurgitation. Tricuspid Valve The tricuspid valve is normal in structure and function. There is mild tricuspid regurgitation. Righ t ventricular systolic pressure is normal. Aortic Valve There is mild to moderate aortic sclerosis.;. No hemodynamically significant valvular aortic stenosi s. No aortic regurgitation is present. Pulmonic Valve The pulmonic valve is not well visualized. There is no pulmonic valvular stenosis. There is no pulmo tri valvular regurgitation. Great Vessels The aortic root is normal size. Normal IVC size and contractility. Pericardium/Pleura There is no pericardial effusion. Tech Comments TDS. Patient very thin. Bilateral chest tubes. Scanned slightly sitting up. Summary Statements The study was technically difficult with many images being suboptimal in quality. Regional wall motion abnormalities cannot be excluded due to limited visualization. Left ventricular systolic function is grossly normal. The transmitral spectral Doppler flow pattern is suggestive of impaired LV relaxation. The right ventricle is not well visualized. The right ventricular systolic function is grossly normal. There is mild tricuspid regurgitation. Right ventricular systolic pressure is normal. There is mild to moderate aortic sclerosis.; There is no pericardial effusion. MD Cottrell *Dawood 08/25/2020, 1:10 PM Ordering Physician: Harry Alvarado Referring Physician: HARRY ALVARADO Performed By: Moraima Stanley
--- NOTE | 2020-08-25 14:01 | PN ---
Progress Note, Physician Chief Complaint: Breathing improving at rest but still dyspnea with exertion Sinus tachy with pac's History of Present Illness: 69 year old male with a pmhx of metastatic penile cancer s/p suprapubic catheter with mets to prostate, neck, and inguinal lymph nodes admitted with sob, diffuse abdominal pain, and dysphagia. Noted 20lb weight loss. Increasing fermin with last few weeks with an episode of chest pain a few weeks ago. Noted wbc 11.[address] chest with b/l pleural effusions Elevated ferritin and ldh EKG sinus tachycardia with pac's. - Current Medication List Current Medications: Active Medications Cholecalciferol (Vitamin D3 -) 800 unit PO DAILY [facility] Last Admin: 08/25/20 09:50 Dose: 800 unit Documented by: Docusate Sodium (Colace -) 100 mg PO BID [facility] Last Admin: 08/25/20 09:48 Dose: Not Given Documented by: Sodium Chloride (Normal Saline -) 1,000 mls @ 42 mls/hr IV ASDIR [facility] Last Admin: 08/25/20 09:41 Dose: 42 mls/hr Documented by: Nystatin (Nystatin Oral Suspension -) 500,000 units PO Q6HPO [facility] Last Admin: 08/25/20 13:07 Dose: 500,000 units Documented by: Oxycodone HCl (Oxycontin -) 10 mg PO BID [facility] Last Admin: 08/25/20 09:49 Dose: Not Given Documented by: Oxycodone HCl (Roxicodone -) 5 mg PO Q6H PRN PRN Reason: PAIN LEVEL 7 - 10 Last Admin: 08/25/20 04:47 Dose: 5 mg Documented by: Pantoprazole Sodium (Protonix Iv) 40 mg IVPUSH DAILY [facility] Last Admin: 08/25/20 09:47 Dose: 40 mg Documented by: Polyethylene Glycol (Miralax (For Daily Use) -) 17 gm PO BID [facility] Last Admin: 08/25/20 09:48 Dose: Not Given Documented by: - Objective Vital Signs: Vital Signs Temperature 97.9 F 08/25/20 10:00 Pulse Rate 104 H 08/25/20 10:00 Respiratory Rate 20 08/25/20 10:00 Blood Pressure 113/85 08/25/20 10:00 O2 Sat by Pulse Oximetry (%) 97 08/25/20 10:00 Constitutional: Yes: Cachectic Neck: Yes: Supple Cardiovascular: Yes: Tachycardia, S1, S2. No: JVD Respiratory: Yes: Diminished Edema: No Labs: CBC, BMP 08/25/20 05:35 08/25/20 05:35 INR, PTT INR 1.09 (0.83-1.09) 08/22/20 15:25 Problem List - Problems (1) Dyspnea Code(s): R06.00 - DYSPNEA, UNSPECIFIED Assessment/Plan 69 year old male with a pmhx of metastatic penile cancer diagnosed 1968 s/p suprapubic catheter with mets to prostate, neck, and inguinal lymph nodes admitted with sob, diffuse abdominal pain, and dysphagia. Noted 20lb weight loss. Increasing fermin with last few weeks with an episode of chest pain a few weeks ago. Noted wbc 11.[address] chest with b/l pleural effusions Elevated ferritin and ldh EKG sinus tachycardia with pac's. 1) CV -Sinus tachycardia on tele with pac's. Would not start any beta blockers for pac's given low normal bp. -Continue IV abx as per primary team for urosepsis -covid neg -S/p chest tube -pleural effusions are likely malignant and not chf given rest of exam does not appear to coincide with chf but will plan for echocardiogram with normal LVEF -Consider palliative care given patients diagnosis Tele with sinus tachy with pac's frequent in patient with normal LVEF. BP low normal so would not start beta hortencia at this time but if tolerates in future can start metoprolol. Can dc telemetry Will sign off at this time.
--- NOTE | 2020-08-25 14:24 | PN ---
Teaching Attending Note Name of Resident: Ryder Guerrero ATTENDING PHYSICIAN STATEMENT I saw and evaluated the patient. I reviewed the resident's note and discussed the case with the resident. I agree with the resident's findings and plan as documented. SUBJECTIVE: Participate in palliative care meeting with patient's and family members at bed side. Family and patient are aware that patient's condition is terminal and are interested in pursuing palliative treatment. They are potentially interested in [place]. They are particularly concerned about patient's lack of desire/inability to eat. Patient is also complaining of dysuria and burning around his bladder OBJECTIVE Last Vital Signs Temp Pulse Resp BP Pulse Ox 98.3 F 56 L 18 109/69 98 08/24/20 06:00 08/24/20 06:00 08/24/20 06:00 08/24/20 06:00 08/23/20 21:00 PE: Per resident note Labs/Imaging: reviewed ASSESSMENT/PLAN 69-year-old man with a history of unspecified urologic metastatic cancer, suprapubic catheter, hemorrhoids, chronic constipation presents with sepsis secondary to complicated UTI, failure to thrive, extensive bilateral pleural effusions, worsening dysphasia #Metastatic urethral cancer Per patient after unsuccessful immunotherapy was offered chemotherapy but refused and was told by his oncologist he had 5 to 6 months to live approximately 8 months ago. -Pt made DNR/DNI -probable transfer to [facility]: [facility] currently working on paperwork -pt is interested in appetite stimulant #Severe sepsis secondary to presumed urinary tract infection and possible parapneumonic effusions: Improving Polymicrobial urine culture per ID discontinue abx -pt is reporting some burning in his pelvis. Will discuss alternate tx options #Failure to thrive Dietitian #Severe protein calorie malnutrition dietitian #Dysphasia To both liquids and solids. States he has not been able to eat much in the last 4 days barium swallow unrevealing. Given GoC no further workup indicated at this point #Bilateral pleural effusions Does not appear externally fluid overloaded, most likely represents malignant pleural effusions. Pulmonary on board: appreciate recs -s/p bilateral chest tubes Dispo: has terminal cancer. Likely transfer to [facility] pending final family decision and insurance approval
--- NOTE | 2020-08-25 17:27 | PN ---
Physical Exam: SUBJECTIVE: Patient seen and examined at bedside. C/o dysphagia. No acute events overnight. OBJECTIVE: Vital Signs Period Temp Pulse Resp BP Sys/Ag Pulse Ox Last 24 Hr 97.9 F-98.4 F 56-111 18-21 110-132/56-90 97-98 GENERAL: Cachectic HEAD: Temporal Wasting LUNGS: Decreased breath sounds. Chest tubes bilaterally HEART: Irregular ABDOMEN: Soft, nondistended and nontender : Phimosis, palpable inguinal lymphadenopathy bilaterally. Penis and scrotum with thickened skin. Suprapubic Tube EXTREMITIES: No CCE NEUROLOGICAL: Cranial nerves II through XII grossly intact. PSYCH: Normal mood, normal affect. SKIN: Dermatitis RLE. Laboratory Results - last 24 hr 08/23/20 08/24/20 08/25/20 13:45 15:45 05:35 WBC 10.6 H RBC 4.49 Hgb 11.8 Hct 37.4 MCV 83.3 MCH 26.4 MCHC 31.7 L RDW 15.9 Plt Count 332 MPV 8.2 Sodium Potassium Chloride Carbon Dioxide Anion Gap BUN Creatinine Est GFR (CKD-EPI)AfAm Est GFR (CKD-EPI)NonAf Random Glucose Calcium Phosphorus Magnesium Fluid Source Pleural POC Fluid pH 8.7 Fluid WBC 862 Fluid RBC 4696 Fluid Neutrophils 9 Fluid Lymphocytes 22 Fluid Other Cells 30 Fluid Glucose 93 Fluid Total Protein 3.3 Fluid Albumin 2.0 Body Fluid LDH Source 302 Fluid Amylase 34 Fluid Triglycerides 32 Pleural Monocytes 10 Pleural Diff Comment See comment 08/25/20 05:35 WBC RBC Hgb Hct MCV MCH MCHC RDW Plt Count MPV Sodium 138 Potassium 4.6 Chloride 103 Carbon Dioxide 25 Anion Gap 11 BUN 40.1 H Creatinine 1.3 Est GFR (CKD-EPI)AfAm 64.52 Est GFR (CKD-EPI)NonAf 55.67 Random Glucose 76 Calcium 8.1 L Phosphorus 3.9 Magnesium 2.3 Fluid Source POC Fluid pH Fluid WBC Fluid RBC Fluid Neutrophils Fluid Lymphocytes Fluid Other Cells Fluid Glucose Fluid Total Protein Fluid Albumin Body Fluid LDH Source Fluid Amylase Fluid Triglycerides Pleural Monocytes Pleural Diff Comment Active Medications Generic Name Dose Route Start Last Admin Trade Name Freq PRN Reason Stop Dose Admin Cholecalciferol 800 unit 08/22/20 22:00 08/25/20 09:50 Vitamin D3 - PO 800 unit DAILY [facility] Administration Docusate Sodium 100 mg 08/23/20 10:00 08/25/20 09:48 Colace - PO Not Given BID [facility] Sodium Chloride 1,000 mls @ 42 mls/hr 08/22/20 21:45 08/25/20 09:41 Normal Saline - IV 42 mls/hr ASDIR [facility] Administration Nystatin 500,000 units 08/25/20 12:00 08/25/20 13:07 Nystatin Oral Suspension - PO 500,000 units Q6HPO [facility] Administration Oxycodone HCl 10 mg 08/22/20 23:30 08/25/20 09:49 Oxycontin - PO Not Given BID [facility] Oxycodone HCl 5 mg 08/22/20 23:21 08/25/20 14:48 Roxicodone - PO 5 mg Q6H PRN Administration PAIN LEVEL 7 - 10 Pantoprazole Sodium 40 mg 08/24/20 10:00 08/25/20 09:47 Protonix Iv IVPUSH 40 mg DAILY [facility] Administration Phenazopyridine HCl 100 mg 08/25/20 18:30 Pyridium - PO PC [facility] Polyethylene Glycol 17 gm 08/23/20 10:00 08/25/20 09:48 Miralax (For Daily Use) - PO Not Given BID [facility] ASSESSMENT/PLAN: 69-year-old man with a history of unspecified urologic metastatic cancer, suprapubic catheter, hemorrhoids, chronic constipation presents with sepsis secondary to complicated UTI, failure to thrive, extensive bilateral pleural effusions, worsening dysphasia #Urosepsis likely 2/2 indwelling Suprapubic cath Rocephin discontinued as now signs of active infection. VSS No WBC. -lactate trended down, afebrile -f/u cultures #Metastatic Urothelial Cell Carcinoma of Urethra -Records obtained from [facility]. Biopsy 10/2018 of penile urethra revealed high grade carcinoma with necrosis, meatus of penis biopsy showed high grade carcinoma invading fibrous tissue, inguinal LN R high grade carcinoma consistent with metastatic carcinoma. Patient was treated with Pembrolizumab at [facility] 11/2018. 07/01/19--> saw Dr Corcoran for treatment pembro cycle 11, chemoradiation therapy recommended, patient declined. Started RT with Dr Zan Ac in April but only had 3 treatments; he then reported fatigue and developed and developed GI symptoms -Patient states he was diagnosed approximately 2 years ago. Will obtain records from [facility]. States he is currently not on any chemotherapy or cancer treatment. -Per palliative care note from today---> Patient did express he does not wish CPR or intubation at this point. MOLST form completed by John. Lora brought in copy of HCP and it was placed on chart. #Failure to thrive Dietitian #Severe protein calorie malnutrition dietitian #Dysphasia -To both liquids and solids. States he has not been able to eat much in the last 4 days GI on board--> recommending SWALLOW EVALUATION, PPI , ESOPHAGRAM, BOWEL REGIMEN. -MBS--> Patient fearful of swallowing with intermittent penetration/aspiration of trace to mild severity on thin liquid. Patient complains of discomfort when he is swallowing. -Speech pathology recs---> Agree to liberalize diet, soft/thin trials,as ac cepted and tolerated. #Bilateral pleural effusions -As appreciated on CT Chest. S/p right sided Chest tube. Draining copious amounts of fluid. Left pigtail inserted yesterday. Pleural culture results pending. Pulmonary on board. Recs appreciated -Cardio on board--> pleural effusions are likely malignant and not chf given rest of exam does not appear to coincide with chf but will plan for echocardiogram with normal LVEF ECHO: Normal LVEF, Impaired LV Relaxation. #FEN -May administer fluids if patient becomes hypotonic. Discussed with Pulmonology. - liberalize diet, soft/thin trials,as accepted and tolerated. -Monitor Electrolytes #DVT ppx: -SCDs Dispo: -Tele. [facility] discussion held this afternoon. Visit type - Emergency Visit Emergency Visit: Yes ED Registration Date: 08/22/20 Care time: The patient presented to the Emergency Department on the above date and was hospitalized for further evaluation of their emergent condition. - New Patient This patient is new to me today: No - Critical Care Critical Care patient: No - Discharge Referral Referred to [facility] No - Medication Review Med list reviewed for High Risk Meds patients 65 and older: Yes ATTENDING PHYSICIAN STATEMENT I saw and evaluated the patient. I reviewed the resident's note and discussed the case with the resident. I agree with the resident's findings and plan as documented. SUBJECTIVE: OBJECTIVE: ASSESSMENT AND PLAN:
[2020-08-25] MEDS: PHENAZOPYRIDINE HCL 100 MG TABLET (FP) PO SCH (17:41)
[2020-08-25] MEDS ORDERED: MELATONIN 5 MG TABLETS PO ONE (20:24)
[2020-08-26] MEDS: NYSTATIN 500,000 UNITS/5 ML SUSPENSION PO SCH ×3 (06:09→18:57)
[2020-08-26 06:50] LABS: HEMATOCRIT 38.7 % (35.4-49); HEMOGLOBIN 12.2 GM/dL (11.7-16.9); MCH 25.8 pg (25.7-33.7); MCHC 31.6 g/dl (32.0-35.9); MEAN CELL VOLUME 81.8 fl (80-96); PLATELET COUNT 355 K/MM3 (134-434); RBC 4.73 M/mm3 (4.00-5.60); WHITE BLOOD COUNT 10.7 K/mm3 (4.0-10.0)
[2020-08-26 07:23] LABS: BLOOD UREA NITROGEN 38.5 mg/dL (7-18); CALCIUM 8.7 mg/dL (8.5-10.1); CREATININE 1.2 mg/dL (0.55-1.3); MAGNESIUM 2.5 mg/dL (1.8-2.4); POTASSIUM 4.7 mmol/L (3.5-5.1)
[2020-08-26] MEDS ORDERED: PT OWN MED DRAWER 7, Y5N ONE (09:22)
[2020-08-26] MEDS: PHENAZOPYRIDINE HCL 100 MG TABLET (FP) PO SCH ×3 (09:28→18:57)
[2020-08-26] MEDS: oxyCODONE HCL 10 MG SUSTAINED ACTING TABLET PO SCH ×3 (09:28→22:00)
[2020-08-26] MEDS: CHOLECALCIFEROL (VIT D3) 400 UNIT (10 MCG) TABLET PO SCH (09:29)
[2020-08-26] MEDS: DOCUSATE SODIUM 100 MG CAPSULE (FP) PO SCH ×2 (09:30→21:52)
[2020-08-26] MEDS: POLYETHYLENE GLYCOL 3350 119 GM BTL PO SCH ×2 (09:30→22:00)
[2020-08-26] MEDS: PANTOPRAZOLE SODIUM 40 MG VIAL IVPUSH SCH (09:30)
--- NOTE | 2020-08-26 10:44 | PN ---
Progress Note (short form) - Note Progress Note: PULMONARY States breathing is improving. Chest tube draining >2.5L so far. Vital Signs Period Temp Pulse Resp BP Sys/Ag Pulse Ox Last 24 Hr 98.1 F-98.4 F 99-106 18-20 97-128/55-76 98-99 Gen: NAD at rest Heart: RRR Lung: decreased breath sounds at the bases Abd: soft, nontender Ext: no edema CBC, BMP 08/26/20 06:00 08/26/20 06:00 Active Medications Cholecalciferol (Vitamin D3 -) 800 unit PO DAILY [facility] Last Admin: 08/26/20 09:29 Dose: 800 unit Documented by: Docusate Sodium (Colace -) 100 mg PO BID [facility] Last Admin: 08/26/20 09:30 Dose: Not Given Documented by: Sodium Chloride (Normal Saline -) 1,000 mls @ 42 mls/hr IV ASDIR [facility] Last Admin: 08/25/20 21:32 Dose: Not Given Documented by: Nystatin (Nystatin Oral Suspension -) 500,000 units PO Q6HPO [facility] Last Admin: 08/26/20 06:09 Dose: Not Given Documented by: Oxycodone HCl (Oxycontin -) 10 mg PO BID [facility] Last Admin: 08/26/20 09:28 Dose: 10 mg Documented by: Pantoprazole Sodium (Protonix Iv) 40 mg IVPUSH DAILY [facility] Last Admin: 08/26/20 09:30 Dose: 40 mg Documented by: Phenazopyridine HCl (Pyridium -) 100 mg PO PC [facility] Last Admin: 08/26/20 09:28 Dose: 100 mg Documented by: Polyethylene Glycol (Miralax (For Daily Use) -) 17 gm PO BID [facility] Last Admin: 08/26/20 09:30 Dose: Not Given Documented by: A/P Metastatic Penile Cancer Exudative Pleural Effusion - monitor chest tube output - f/u pleural fluid cytology - may need pleur-x catheter - DVT prophylaxis
[2020-08-26] MEDS: SODIUM CHLORIDE 1,000 ML IV SCH ×2 (11:45→21:51)
[2020-08-26 12:10] LABS: BODY FLUID ALBUMIN 1.9 g/dL (Not Estab.)
--- NOTE | 2020-08-26 21:51 | PN ---
Physical Exam: SUBJECTIVE: Patient seen and examined at bedside, no overnight events, will change martinez to legbag to gravity to avoid reflux of urine back into bladder, continuing abx, VSS. OBJECTIVE: Vital Signs Period Temp Pulse Resp BP Sys/Ag Pulse Ox Last 24 Hr 97.8 F-98.2 F 99-106 18-20 95-128/52-76 98-99 GENERAL: Cachectic, AAox3 HEAD: Temporal Wasting LUNGS: Decreased breath sounds. Chest tubes bilaterally HEART: Irregularly irregular, regular rate ABDOMEN: Soft, nondistended and nontender : Phimosis, palpable inguinal lymphadenopathy bilaterally. Penis and scrotum with thickened skin. Suprapubic Tube EXTREMITIES: No CCE NEUROLOGICAL: Cranial nerves II through XII grossly intact. PSYCH: Normal mood, normal affect. SKIN: Dermatitis RLE. Laboratory Results - last 24 hr 08/24/20 08/26/20 08/26/20 15:45 06:00 06:00 WBC 10.7 H RBC 4.73 Hgb 12.2 Hct 38.7 MCV 81.8 MCH 25.8 MCHC 31.6 L RDW 16.0 H Plt Count 355 MPV 8.0 Sodium 140 Potassium 4.7 Chloride 106 Carbon Dioxide 26 Anion Gap 9 BUN 38.5 H Creatinine 1.2 Est GFR (CKD-EPI)AfAm 71.08 Est GFR (CKD-EPI)NonAf 61.33 Random Glucose 80 Calcium 8.7 Phosphorus 4.0 Magnesium 2.5 H Fluid Glucose 80 Fluid Total Protein 3.0 Fluid Albumin 1.9 Body Fluid LDH Source 337 Fluid Amylase 30 Fluid Triglycerides 32 Active Medications Generic Name Dose Route Start Last Admin Trade Name Denzelq PRN Reason Stop Dose Admin Cholecalciferol 800 unit 08/22/20 22:00 08/26/20 09:29 Vitamin D3 - PO 800 unit DAILY [facility] Administration Docusate Sodium 100 mg 08/23/20 10:00 08/26/20 09:30 Colace - PO Not Given BID [facility] Sodium Chloride 1,000 mls @ 42 mls/hr 08/22/20 21:45 08/26/20 11:45 Normal Saline - IV 42 mls/hr ASDIR [facility] Administration Nystatin 500,000 units 08/25/20 12:00 08/26/20 18:57 Nystatin Oral Suspension - PO 500,000 units Q6HPO [facility] Administration Oxycodone HCl 10 mg 08/22/20 23:30 08/26/20 11:43 Oxycontin - PO Not Given BID [facility] Pantoprazole Sodium 40 mg 08/24/20 10:00 08/26/20 09:30 Protonix Iv IVPUSH 40 mg DAILY [facility] Administration Phenazopyridine HCl 100 mg 08/25/20 18:30 08/26/20 18:57 Pyridium - PO 100 mg PC [facility] Administration Polyethylene Glycol 17 gm 08/23/20 10:00 08/26/20 09:30 Miralax (For Daily Use) - PO Not Given BID [facility] ASSESSMENT/PLAN: 69 M Metastatic penile ca s/p SPT HTN HLD Chronic pain Underweight Malnourishment Sepsis UTI Plan: Cont. Pyridium PO Cont. Nystatin Finished abx course change martinez to gravity (currently w/ leg bag and urine is refluxing back into bladder) Pain control Palliative evaluation for GOC/SNF placement DVT ppx: SCD Visit type - Emergency Visit Emergency Visit: Yes ED Registration Date: 08/22/20 Care time: The patient presented to the Emergency Department on the above date and was hospitalized for further evaluation of their emergent condition. - New Patient This patient is new to me today: Yes Date on this admission: 08/26/20 - Critical Care Critical Care patient: No - Discharge Referral Referred to [facility] No - Medication Review Med list reviewed for High Risk Meds patients 65 and older: Yes
[2020-08-26] MEDS ORDERED: MELATONIN 5 MG TABLETS PO ONE (22:24)
[2020-08-27] MEDS: NYSTATIN 500,000 UNITS/5 ML SUSPENSION PO SCH ×4 (00:56→18:49)
[2020-08-27 07:08] LABS: BASO % 0.4 % (0-2.0); EOS % 0.8 % (0-4.5); HEMATOCRIT 34.8 % (35.4-49); HEMOGLOBIN 11.2 GM/dL (11.7-16.9); LYMPH % 4.9 % (8-40); MCH 26.1 pg (25.7-33.7); MCHC 32.1 g/dl (32.0-35.9); MEAN CELL VOLUME 81.1 fl (80-96); MEAN PLT VOLUME 8.1 fl (7.5-11.1); MONO % 5.9 % (3.8-10.2); PLATELET COUNT 328 K/MM3 (134-434); RBC 4.29 M/mm3 (4.00-5.60); RDW 15.9 % (11.9-15.9)
[2020-08-27 07:42] LABS: POTASSIUM 4.6 mmol/L (3.5-5.1)
[2020-08-27 07:48] LABS: ALBUMIN 1.9 g/dl (3.4-5.0); BILIRUBIN,TOTAL 0.3 mg/dL (0.2-1); BLOOD UREA NITROGEN 33.9 mg/dL (7-18); CALCIUM 8.6 mg/dL (8.5-10.1); CREATININE 0.9 mg/dL (0.55-1.3); TOT PROT 4.6 g/dl (6.4-8.2)
--- NOTE | 2020-08-27 08:00 | PN ---
Progress Note, Physician History of Present Illness: pulmonary alert,comfortable at rest,sob improving - Current Medication List Current Medications: Active Medications Cholecalciferol (Vitamin D3 -) 800 unit PO DAILY [facility] Last Admin: 08/26/20 09:29 Dose: 800 unit Documented by: Docusate Sodium (Colace -) 100 mg PO BID [facility] Last Admin: 08/26/20 21:52 Dose: Not Given Documented by: Sodium Chloride (Normal Saline -) 1,000 mls @ 42 mls/hr IV ASDIR [facility] Last Admin: 08/26/20 21:51 Dose: Not Given Documented by: Nystatin (Nystatin Oral Suspension -) 500,000 units PO Q6HPO [facility] Last Admin: 08/27/20 05:31 Dose: 500,000 units Documented by: Oxycodone HCl (Oxycontin -) 10 mg PO BID [facility] Last Admin: 08/26/20 22:00 Dose: 10 mg Documented by: Pantoprazole Sodium (Protonix Iv) 40 mg IVPUSH DAILY [facility] Last Admin: 08/26/20 09:30 Dose: 40 mg Documented by: Phenazopyridine HCl (Pyridium -) 100 mg PO PC [facility] Last Admin: 08/26/20 18:57 Dose: 100 mg Documented by: Polyethylene Glycol (Miralax (For Daily Use) -) 17 gm PO BID [facility] Last Admin: 08/26/20 22:00 Dose: Not Given Documented by: - Objective Vital Signs: Vital Signs Temperature 98 F 08/27/20 06:00 Pulse Rate 106 H 08/27/20 06:00 Respiratory Rate 18 08/27/20 06:00 Blood Pressure 104/70 08/27/20 06:00 O2 Sat by Pulse Oximetry (%) 100 08/27/20 06:00 Constitutional: Yes: Calm, Cachectic Eyes: Yes: WNL HENT: Yes: WNL Neck: Yes: WNL Cardiovascular: Yes: Regular Rate and Rhythm, S1, S2 Respiratory: Yes: Other (improved bs bilaterally) Gastrointestinal: Yes: Normal Bowel Sounds, Soft Extremities: Yes: WNL Edema: No Labs: CBC, BMP 08/27/20 05:58 08/27/20 05:58 INR, PTT INR 1.09 (0.83-1.09) 08/22/20 15:25 Problem List - Problems (1) Dyspnea Code(s): R06.00 - DYSPNEA, UNSPECIFIED (2) Pleural effusion Code(s): J90 - PLEURAL EFFUSION, NOT ELSEWHERE CLASSIFIED Assessment/Plan MP DYSPNEA LARGE BILATERAL PLEURAL EFFUSIONS C/W EXUDATE METASTATIC PENILE CA,BONE METS,PROSTATE ABDOMINAL PAIN PELVIC ASCITES DYSPHAGIA LACTIC ACIDOSIS improved PLAN SUPPLEMENTAL O2 s/p PIGTAIL CATH INSERTION monitor pleural fluid output ECHO PENDING PLEURAL FLUID CYTOLOGY PENDING MAY NEED PLEUR-X CATHETER Problem List - Problems (1) Dyspnea Code(s): R06.00 - DYSPNEA, UNSPECIFIED (2) Pleural effusion Code(s): J90 - PLEURAL EFFUSION, NOT ELSEWHERE CLASSIFIED
[2020-08-27] MEDS ORDERED: PT OWN MED DRAWER 7, Y5N ONE ×2 (09:41→10:33)
[2020-08-27] MEDS: PANTOPRAZOLE SODIUM 40 MG VIAL IVPUSH SCH (09:47)
[2020-08-27] MEDS: CHOLECALCIFEROL (VIT D3) 400 UNIT (10 MCG) TABLET PO SCH (09:47)
[2020-08-27] MEDS: PHENAZOPYRIDINE HCL 100 MG TABLET (FP) PO SCH ×3 (09:48→18:49)
[2020-08-27] MEDS: DOCUSATE SODIUM 100 MG CAPSULE (FP) PO SCH ×2 (09:48→21:48)
[2020-08-27] MEDS: POLYETHYLENE GLYCOL 3350 119 GM BTL PO SCH ×2 (09:48→21:49)
[2020-08-27] MEDS: oxyCODONE HCL 10 MG SUSTAINED ACTING TABLET PO SCH ×2 (09:50→21:49)
[2020-08-27] MEDS: SODIUM CHLORIDE 1,000 ML IV SCH ×2 (11:27→21:48)
--- NOTE | 2020-08-27 12:36 | PN ---
Progress Note (short form) - Note Progress Note: SUBJECTIVE: Seen and examined at bedside. Patient is comfortable. Family still deciding as to whether patient will be sent for home hospice versus [place] OBJECTIVE Last Vital Signs Temp Pulse Resp BP Pulse Ox 98 F 109 H 18 123/80 97 08/27/20 10:00 08/27/20 10:00 08/27/20 10:00 08/27/20 10:00 08/27/20 10:00 PE: Per resident note Labs/Imaging: reviewed ASSESSMENT/PLAN 69-year-old man with a history of unspecified urologic metastatic cancer, suprapubic catheter, hemorrhoids, chronic constipation presents with sepsis secondary to complicated UTI, failure to thrive, extensive bilateral pleural effusions, worsening dysphasia #Metastatic urethral cancer Per patient after unsuccessful immunotherapy was offered chemotherapy but refused and was told by his oncologist he had 5 to 6 months to live approximately 8 months ago. -Pt made DNR/DNI -probable transfer to [facility]: [facility] currently working on paperwork -pt is interested in appetite stimulant #Severe sepsis secondary to presumed urinary tract infection and possible parapneumonic effusions: Improving Polymicrobial urine culture per ID discontinue abx -pt is reporting some burning in his pelvis. Will discuss alternate tx options #Failure to thrive Dietitian #Severe protein calorie malnutrition dietitian #Dysphasia To both liquids and solids. States he has not been able to eat much in the last 4 days barium swallow unrevealing. Given GoC no further workup indicated at this point #Bilateral pleural effusions Does not appear externally fluid overloaded, most likely represents malignant pleural effusions. Pulmonary on board: appreciate recs -s/p bilateral chest tubes Dispo: has terminal cancer. Likely transfer to [facility] pending final family decision and insurance approval Visit type - Emergency Visit Emergency Visit: Yes ED Registration Date: 08/22/20 Care time: The patient presented to the Emergency Department on the above date and was hospitalized for further evaluation of their emergent condition. - New Patient This patient is new to me today: No - Critical Care Critical Care patient: No - Medication Review Med list reviewed for High Risk Meds patients 65 and older: Yes
[2020-08-28] MEDS: NYSTATIN 500,000 UNITS/5 ML SUSPENSION PO SCH ×5 (00:58→23:02)
[2020-08-28 07:02] LABS: BASO % 0.5 % (0-2.0); EOS % 1.4 % (0-4.5); HEMATOCRIT 38.3 % (35.4-49); LYMPH % 7.2 % (8-40); MCH 25.6 pg (25.7-33.7); MCHC 31.4 g/dl (32.0-35.9); MEAN CELL VOLUME 81.8 fl (80-96); MEAN PLT VOLUME 7.8 fl (7.5-11.1); MONO % 7.4 % (3.8-10.2); NEUT % 83.5 % (42.8-82.8); PLATELET COUNT 337 K/MM3 (134-434); RBC 4.68 M/mm3 (4.00-5.60); RDW 15.6 % (11.9-15.9); WHITE BLOOD COUNT 8.4 K/mm3 (4.0-10.0)
[2020-08-28 07:28] LABS: CALCIUM 8.7 mg/dL (8.5-10.1); POTASSIUM 4.6 mmol/L (3.5-5.1)
[2020-08-28] MEDS ORDERED: PT OWN MED DRAWER 7, Y5N ONE (09:14)
[2020-08-28] MEDS: PHENAZOPYRIDINE HCL 100 MG TABLET (FP) PO SCH ×3 (09:24→17:35)
[2020-08-28] MEDS: DOCUSATE SODIUM 100 MG CAPSULE (FP) PO SCH ×2 (09:24→21:05)
[2020-08-28] MEDS: POLYETHYLENE GLYCOL 3350 119 GM BTL PO SCH ×2 (09:29→21:06)
[2020-08-28] MEDS: oxyCODONE HCL 10 MG SUSTAINED ACTING TABLET PO SCH ×2 (09:29→21:05)
[2020-08-28] MEDS: PANTOPRAZOLE SODIUM 40 MG VIAL IVPUSH SCH (09:29)
[2020-08-28] MEDS: CHOLECALCIFEROL (VIT D3) 400 UNIT (10 MCG) TABLET PO SCH (09:31)
--- NOTE | 2020-08-28 10:52 | PN ---
Progress Note, ASSEMBLY TECHNICIAN - Note Progress Note: MBS completed. Puree/nectar ordered. Refusing all PO Selected Entries 08/24/20 08/24/20 08/24/20 06:00 10:58 13:15 Breakfast 0 Diet Tolerated Fair Refused Lunch 0 Pulse Rate Blood Pressure 08/24/20 08/25/20 08/25/20 23:00 02:00 06:00 Breakfast Diet Tolerated Refused Lunch Pulse Rate 104 H 111 H Blood Pressure 110/64 132/90 08/25/20 09:22 Breakfast Diet Tolerated Refused Lunch Pulse Rate Blood Pressure Laboratory Tests 08/22/20 08/23/20 08/24/20 15:30 06:23 05:52 WBC 10.9 H 11.1 H COVID-19 ([facility]) Not detected 08/25/20 05:35 WBC 10.6 H COVID-19 ([facility]) Selected Entries 08/27/20 08/28/20 08/28/20 14:52 02:00 06:00 Breakfast 25% Diet Tolerated Poor Lunch 25% Temperature 98.7 F 98.6 F Pulse Rate 55 L 110 H Blood Pressure 126/70 125/70 O2 Sat by Pulse 97 98 Oximetry (%) Oxygen Delivery Method 08/28/20 08/28/20 09:00 09:47 Breakfast 25% Diet Tolerated Poor Lunch Temperature Pulse Rate Blood Pressure O2 Sat by Pulse 99 Oximetry (%) Oxygen Delivery Nasal Cannula Method Laboratory Tests 08/26/20 08/28/20 06:00 06:34 WBC 10.7 H 8.4 Palliative care notes reviewed and appreciated calvary being considered. eating a little. recommended liberalize diet, soft/thin trials,as desired, accepted and tolerated. eg pt requesting egg salad. alternate solids with liquids. continue trial of supplements throughout the day Consider appetite stimulant?
--- NOTE | 2020-08-28 11:07 | PN ---
Teaching Attending Note Name of Resident: Jie Orellana ATTENDING PHYSICIAN STATEMENT I saw and evaluated the patient. I reviewed the resident's note and discussed the case with the resident. I agree with the resident's findings and plan as documented. SUBJECTIVE: Seen and examined at bedside. Condition unchanged. Patient is comfortable. Octaviano mcgheey still deciding as to whether patient will be sent for home hospice versus [facility] OBJECTIVE Last Vital Signs Temp Pulse Resp BP Pulse Ox 98.6 F 110 H 18 125/70 99 08/28/20 06:00 08/28/20 06:00 08/28/20 06:00 08/28/20 06:00 08/28/20 09:00 PE: Per resident note Labs/Imaging: reviewed ASSESSMENT/PLAN 69-year-old man with a history of unspecified urologic metastatic cancer, suprapubic catheter, hemorrhoids, chronic constipation presents with sepsis secondary to complicated UTI, failure to thrive, extensive bilateral pleural effusions, worsening dysphasia #Metastatic urethral cancer Per patient after unsuccessful immunotherapy was offered chemotherapy but refused and was told by his oncologist he had 5 to 6 months to live approximately 8 months ago. -Pt made DNR/DNI -[facility]: [facility] currently working on paperwork -pt is interested in appetite stimulant #Severe sepsis secondary to presumed urinary tract infection and possible parapneumonic effusions: Improving Polymicrobial urine culture per ID discontinue abx -pt is reporting some burning in his pelvis. Will discuss alternate tx options #Failure to thrive Dietitian #Severe protein calorie malnutrition dietitian #Dysphasia To both liquids and solids. States he has not been able to eat much in the last 4 days barium swallow unrevealing. Given GoC no further workup indicated at this point #Bilateral pleural effusions Does not appear externally fluid overloaded, most likely represents malignant pleural effusions. Pulmonary on board: appreciate recs -s/p bilateral chest tubes Dispo: has terminal cancer. [facility] pending final family decision and insurance approval
--- NOTE | 2020-08-28 11:30 | PN ---
Progress Note (short form) - Note Progress Note: PULMONARY Breathing about the same. Less output from chest tube. Vital Signs Period Temp Pulse Resp BP Sys/Ag Pulse Ox Last 24 Hr 97.8 F-98.7 F 55-112 18-20 111-128/70-82 91-99 Intake & Output 08/25/20 08/26/20 08/27/20 08/28/20 23:59 23:59 23:59 23:59 Intake Total 4365 784 2472 336 Output Total 1880 2150 600 700 Balance -498 -1280 588 -364 Gen: NAD at rest Heart: RRR Lung: decreased breath sounds at the bases Abd: soft, nontender Ext: no edema CBC, BMP 08/28/20 06:34 08/28/20 06:34 Active Medications Cholecalciferol (Vitamin D3 -) 800 unit PO DAILY [facility] Last Admin: 08/28/20 09:31 Dose: Not Given Documented by: Docusate Sodium (Colace -) 100 mg PO BID [facility] Last Admin: 08/28/20 09:24 Dose: Not Given Documented by: Sodium Chloride (Normal Saline -) 1,000 mls @ 42 mls/hr IV ASDIR [facility] Last Admin: 08/27/20 21:48 Dose: Not Given Documented by: Nystatin (Nystatin Oral Suspension -) 500,000 units PO Q6HPO [facility] Last Admin: 08/28/20 06:03 Dose: 500,000 units Documented by: Oxycodone HCl (Oxycontin -) 10 mg PO BID [facility] Last Admin: 08/28/20 09:29 Dose: 10 mg Documented by: Pantoprazole Sodium (Protonix Iv) 40 mg IVPUSH DAILY [facility] Last Admin: 08/28/20 09:29 Dose: 40 mg Documented by: Phenazopyridine HCl (Pyridium -) 100 mg PO PC [facility] Last Admin: 08/28/20 09:24 Dose: 100 mg Documented by: Polyethylene Glycol (Miralax (For Daily Use) -) 17 gm PO BID [facility] Last Admin: 08/28/20 09:29 Dose: Not Given Documented by: A/P Metastatic Penile Cancer Exudative Pleural Effusion - r/o Malignant Effusion - monitor chest tube output - f/u pleural fluid cytology - may need pleur-x catheter - DVT prophylaxis
--- NOTE | 2020-08-28 11:55 | PN ---
Physical Exam: SUBJECTIVE: Patient seen this morning and has no complaints. OBJECTIVE: Vital Signs Period Temp Pulse Resp BP Sys/Ag Pulse Ox Last 24 Hr 97.8 F-98.7 F 55-112 18-20 111-128/70-82 91-99 GENERAL: The patient is awake, alert, and fully oriented, in no acute distress. HEAD: Normal with no signs of trauma. EYES: PERRL, extraocular movements intact, sclera anicteric, LUNGS: Breath sounds equal, clear to auscultation bilaterally, no wheezes, no crackles, no accessory muscle use. HEART: Regular rate and rhythm, S1, S2 without murmur, rub or gallop. ABDOMEN: Soft,mild tenderness EXTREMITIES: 2+ pulses, warm, well-perfused, no edema. SKIN: Warm, dry, normal turgor, no rashes or lesions noted CBC, BMP 08/28/20 06:34 08/28/20 06:34 Active Medications Generic Name Dose Route Start Last Admin Trade Name Freq PRN Reason Stop Dose Admin Cholecalciferol 800 unit 08/22/20 22:00 08/28/20 09:31 Vitamin D3 - PO Not Given DAILY LUIS ANTONIO Docusate Sodium 100 mg 08/23/20 10:00 08/28/20 09:24 Colace - PO Not Given BID LUIS ANTONIO Sodium Chloride 1,000 mls @ 42 mls/hr 08/22/20 21:45 08/27/20 21:48 Normal Saline - IV Not Given ASDIR LUIS ANTONIO Nystatin 500,000 units 08/25/20 12:00 08/28/20 06:03 Nystatin Oral Suspension - PO 500,000 units Q6HPO [facility] ANTONIO Administration Oxycodone HCl 10 mg 08/22/20 23:30 08/28/20 09:29 Oxycontin - PO 10 mg BID [facility] ANTONIO Administration Pantoprazole Sodium 40 mg 08/24/20 10:00 08/28/20 09:29 Protonix Iv IVPUSH 40 mg DAILY [facility] ANTONIO Administration Phenazopyridine HCl 100 mg 08/25/20 18:30 08/28/20 09:24 Pyridium - PO 100 mg PC [facility] ANTONIO Administration Polyethylene Glycol 17 gm 08/23/20 10:00 08/28/20 09:29 Miralax (For Daily Use) - PO Not Given BID [facility] ANTONIO ASSESSMENT/PLAN: 69-year-old man with a history of unspecified urologic metastatic cancer, suprapubic catheter, hemorrhoids, chronic constipation who is admitted for urosepsis and metastatic urothelial cell carcinoma. #Metastatic Urothelial Cell Carcinoma of Urethra - patient made recent decision of DNR/DNI - continuing goals of care decision with Marilyn for dispo - has not received any type of chemotherapy or cancer treatment - oxy prn for pain #urosepsis : resolved - likely from chronic indwelling catheter - continue ot monitor vitals and labs for any signs of new infection #dysphagia - encouraged cleaning of patients tongue - requested craps manager to speak with patient - continue high calorie diet dispo: monitor until GOC completely discussed Visit type - Emergency Visit Emergency Visit: No - New Patient This patient is new to me today: Yes Date on this admission: 08/28/20 - Critical Care Critical Care patient: No - Medication Review Med list reviewed for High Risk Meds patients 65 and older: Yes ATTENDING PHYSICIAN STATEMENT I saw and evaluated the patient. I reviewed the resident's note and discussed the case with the resident. I agree with the resident's findings and plan as documented. SUBJECTIVE: OBJECTIVE: ASSESSMENT AND PLAN:
[2020-08-28] MEDS ORDERED: MORPHINE SULFATE 2 MG/ML VIAL IVPUSH ONE ×2 (17:30→17:45)
[2020-08-28] MEDS ORDERED: MELATONIN 5 MG TABLETS PO ONE (19:50)
[2020-08-28] MEDS: SODIUM CHLORIDE 1,000 ML IV SCH (21:06)
[2020-08-29] MEDS: NYSTATIN 500,000 UNITS/5 ML SUSPENSION PO SCH ×4 (06:02→17:33)
[2020-08-29 07:30] LABS: HEMATOCRIT 36.2 % (35.4-49); HEMOGLOBIN 11.5 GM/dL (11.7-16.9); MCH 25.8 pg (25.7-33.7); MCHC 31.6 g/dl (32.0-35.9); MEAN CELL VOLUME 81.5 fl (80-96); MEAN PLT VOLUME 8.4 fl (7.5-11.1); PLATELET COUNT 318 K/MM3 (134-434); RBC 4.45 M/mm3 (4.00-5.60); RDW 15.5 % (11.9-15.9); WHITE BLOOD COUNT 9.7 K/mm3 (4.0-10.0)
[2020-08-29 08:06] LABS: BILIRUBIN,TOTAL 0.3 mg/dL (0.2-1); BLOOD UREA NITROGEN 30.3 mg/dL (7-18); CALCIUM 8.8 mg/dL (8.5-10.1); CREATININE 0.9 mg/dL (0.55-1.3); POTASSIUM 4.7 mmol/L (3.5-5.1); TOT PROT 4.6 g/dl (6.4-8.2)
[2020-08-29] MEDS: SODIUM CHLORIDE 1,000 ML IV SCH (08:46)
[2020-08-29] MEDS: DOCUSATE SODIUM 100 MG CAPSULE (FP) PO SCH (09:00)
[2020-08-29] MEDS: PHENAZOPYRIDINE HCL 100 MG TABLET (FP) PO SCH ×3 (09:00→17:33)
[2020-08-29] MEDS: PANTOPRAZOLE SODIUM 40 MG VIAL IVPUSH SCH (09:00)
[2020-08-29] MEDS: CHOLECALCIFEROL (VIT D3) 400 UNIT (10 MCG) TABLET PO SCH (09:00)
[2020-08-29] MEDS: oxyCODONE HCL 10 MG SUSTAINED ACTING TABLET PO SCH (09:00)
[2020-08-29] MEDS: POLYETHYLENE GLYCOL 3350 119 GM BTL PO SCH (09:00)
--- NOTE | 2020-08-29 09:45 | PN ---
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 Progress Note: Selected Entries 08/28/20 08/28/20 08/28/20 02:00 06:00 09:00 Breakfast Diet Tolerated Lunch Supper Temperature Pulse Rate Blood Pressure O2 Sat by Pulse 97 98 99 Oximetry (%) Oxygen Delivery Nasal Cannula Method Oxygen Flow 3 Rate 08/28/20 08/28/20 08/28/20 09:47 10:00 14:54 Breakfast 25% Diet Tolerated Poor Poor Lunch 25% Supper Temperature Pulse Rate Blood Pressure O2 Sat by Pulse 99 Oximetry (%) Oxygen Delivery Method Oxygen Flow Rate 08/28/20 08/28/20 08/28/20 15:00 18:00 21:00 Breakfast Diet Tolerated Poor Lunch 25% Supper Temperature Pulse Rate Blood Pressure O2 Sat by Pulse 98 100 Oximetry (%) Oxygen Delivery Nasal Cannula Method Oxygen Flow 3 Rate 08/28/20 08/28/20 08/29/20 22:00 23:00 06:00 Breakfast Diet Tolerated Poor Lunch Supper 25% Temperature 98.0 F Pulse Rate 55 L Blood Pressure 120/78 O2 Sat by Pulse 100 Oximetry (%) Oxygen Delivery Method Oxygen Flow Rate 08/29/20 08:30 Breakfast 25% Diet Tolerated Fair Lunch Supper Temperature Pulse Rate Blood Pressure O2 Sat by Pulse Oximetry (%) Oxygen Delivery Method Oxygen Flow Rate Laboratory Tests 08/29/20 05:41 WBC 9.7 Trial of soft diet/thin liquids ordered.Pending transfer to [place]. Suggest providing most liberated diet that pt desires and can tolerate.
--- NOTE | 2020-08-29 10:14 | PN ---
Progress Note (short form) - Note Progress Note: PULMONARY c/o severe pain. Breathing about the same. Pigtail catheter clamped. Vital Signs Period Temp Pulse Resp BP Sys/Ag Pulse Ox Last 24 Hr 97.5 F-98.5 F 55-108 18-20 107-130/66-86 98-100 Gen: NAD at rest Heart: RRR Lung: decreased breath sounds at the bases Abd: soft, nontender Ext: no edema CBC, BMP 08/29/20 05:41 08/29/20 05:41 Active Medications Cholecalciferol (Vitamin D3 -) 800 unit PO DAILY [facility] Last Admin: 08/29/20 09:00 Dose: 800 unit Documented by: Docusate Sodium (Colace -) 100 mg PO BID [facility] Last Admin: 08/29/20 09:00 Dose: Not Given Documented by: Sodium Chloride (Normal Saline -) 1,000 mls @ 42 mls/hr IV ASDIR [facility] Last Admin: 08/29/20 08:46 Dose: 42 mls/hr Documented by: Nystatin (Nystatin Oral Suspension -) 500,000 units PO Q6HPO [facility] Last Admin: 08/29/20 06:05 Dose: Not Given Documented by: Oxycodone HCl (Oxycontin -) 10 mg PO BID [facility] Last Admin: 08/29/20 09:00 Dose: 10 mg Documented by: Pantoprazole Sodium (Protonix Iv) 40 mg IVPUSH DAILY [facility] Last Admin: 08/29/20 09:00 Dose: 40 mg Documented by: Phenazopyridine HCl (Pyridium -) 100 mg PO PC [facility] Last Admin: 08/29/20 09:00 Dose: 100 mg Documented by: Polyethylene Glycol (Miralax (For Daily Use) -) 17 gm PO BID [facility] Last Admin: 08/29/20 09:00 Dose: Not Given Documented by: 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
[2020-08-29 10:29] VITALS: BP 116/68; PULSE 113; TEMP 98.2
--- NOTE | 2020-08-29 10:32 | DS ---
Physical Exam: SUBJECTIVE: Patient seen and examined OBJECTIVE: Vital Signs Period Temp Pulse Resp BP Sys/Ag Pulse Ox Last 24 Hr 97.5 F-98.5 F 55-113 18-20 107-130/66-86 96-100 PHYSICAL EXAM LABS Laboratory Results - last 24 hr 08/24/20 08/29/20 08/29/20 15:45 05:41 05:41 WBC 9.7 RBC 4.45 Hgb 11.5 L Hct 36.2 MCV 81.5 MCH 25.8 MCHC 31.6 L RDW 15.5 Plt Count 318 MPV 8.4 Sodium 141 Potassium 4.7 Chloride 105 Carbon Dioxide 31 Anion Gap 5 L BUN 30.3 H Creatinine 0.9 Est GFR (CKD-EPI)AfAm 100.65 Est GFR (CKD-EPI)NonAf 86.84 Random Glucose 91 Calcium 8.8 Total Bilirubin 0.3 AST 77 H ALT 18 Alkaline Phosphatase 124 H Total Protein 4.6 L Albumin 2.0 L POC Fluid pH 7.8 HOSPITAL COURSE: Date of Admission:08/22/20 Date of Discharge: 08/29/20 Discharge Summary Problems reviewed: Yes Reason For Visit: SEPSIS Current Active Problems Dyspnea (Acute) Elevated lactic acid level (Acute) Leukocytosis (Acute) Metastatic cancer (Acute) Pleural effusion (Acute) Pubic ramus fracture (Acute) Rib fracture (Acute) Urethral CA (Acute) Condition: Stable - Instructions Diet, Activity, Other Instructions: You will be transferred to [facility] for palliative care. You are being discharged with a pigtail catheter on the left side of the chest. This will need to be replaced PleurX catheter at [place]. Referrals: Jose Alfredo Torrez [Primary Care Provider] - Disposition: TRANSFER ACUTE CARE/OTHER HOSP - Discharge Referral Referred to [facility] Med P.C.: No ATTENDING PHYSICIAN STATEMENT I saw and evaluated the patient. I reviewed the resident's note and discussed the case with the resident. I agree with the resident's findings and plan as documented. SUBJECTIVE: OBJECTIVE: ASSESSMENT AND PLAN:
--- NOTE | 2020-08-29 11:27 | PN ---
Teaching Attending Note Name of Resident: Ryder Guerrero ATTENDING PHYSICIAN STATEMENT I saw and evaluated the patient. I reviewed the resident's note and discussed the case with the resident. I agree with the resident's findings and plan as documented. SUBJECTIVE: Seen and examined at bedside. [facility] has [facility]tail catheter in L lung which should eventually be removed or switched to a pleurex catheter by the team at [facility]. OBJECTIVE Last Vital Signs Temp Pulse Resp BP Pulse Ox 98.2 F 113 H 18 116/68 96 08/29/20 10:00 08/29/20 10:08/29/20 10:00 08/29/20 10:08/29/20 10:00 PE: Per resident note Labs/Imaging: reviewed ASSESSMENT/PLAN 69-year-old man with a history of unspecified urologic metastatic cancer, suprapubic catheter, hemorrhoids, chronic constipation presents with sepsis secondary to complicated UTI, failure to thrive, extensive bilateral pleural effusions, worsening dysphasia. 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 Both pleural effusions were drained. A pigtail catheter remains in the patient's left lung which will either need to be removed or replaced with a Pleurx catheter at [place]. Patient was treated with antibiotics for UTI which were eventually discontinued. After extensive goals of care discussions patient was made DNR/DNI and decision was made to transfer to [place] for inpatient hospice.
--- NOTE | 2020-08-29 16:30 | PATH ---
Cytology Non-Gynecological Report Patient Name: BRICE RAE [facility]. Rec. #: [id number] /Age/Gender: 1950 (Age: 69) / M Account: [id number] Location: 4 SO PEDS/ADOL Taken: 08/23/2020 Received: 08/23/2020 Reported: 08/29/2020 Physicians: Genoveva Umanzor M.D. Specimen(s) Received PLEURAL FLUID Clinical History Pleural effusion, remote history of renal cancer Final Diagnosis PLEURAL FLUID FOR CYTOLOGY: SATISFACTORY FOR EVALUATION. POSITIVE FOR MALIGNANT CELLS. POORLY DIFFERENTIATED CARCINOMA; COMPATIBLE WITH KNOWN HISTORY OF METASTATIC UROTHELIAL CARCINOMA. SEE COMMENT. Comment: Cytospin shows markedly atypical single cells with irregular nuclear contours, increased nucleus to cytoplasmic ratio and coarse chromatin. Immunohistochemical stains performed and interpreted at [facility] show the malignant cells are positive for AE1/3 and DENAE (focal, high background); while negative for CD45 and S100. Additional immunohistochemical stains performed at [facility] [place] ([id number]) and interpreted at [facility] show the tumor is positive for CK7, NICO, p40, CK5/6, and CD141(Thrombomodulin); while negative for MOC31, TTF-1, Napsin-A, CK20, NKX3.1, renal markers (RCC, PAX-8, CD10), mesothelial markers (D2-40, calretinin), and gastrointestinal markers (CDX2, SATB-2, CDH17), VOLODYMYR-3, and Uroplakin. Above immunophenotype is non-specific, but compatible with known history of metastatic urothelial carcinoma. Suggest clinical and radiologic correlation. Case discussed with Dr. Torres, 08/28/20 Positive and negative controls (internal if applicable) show appropriate results. Electronically Signed Jie Puri M.D. Gross Description Approximately 40 cc of cloudy yellow fluid received fixed in 50% alcohol. One cytofunnel prepared and Pap stained. One cellblock prepared.
--- NOTE | 2020-08-29 16:42 | PATH ---
Cytology Non-Gynecological Report Patient Name: BRICE RAE [facility]. Rec. #: [id number] /Age/Gender: 1950 (Age: 69) / M Account: [id number] Location: 4 SO PEDS/ADOL Taken: 08/24/2020 Received: 08/28/2020 Reported: 08/29/2020 Physicians: Genoveva Umanzor M.D. Specimen(s) Received LEFT PLEURAL FLUID Clinical History Left pleural effusion Final Diagnosis PLEURAL FLUID, LEFT, THORACENTESIS: SATISFACTORY FOR EVALUATION. POSITIVE FOR MALIGNANT CELLS. POORLY DIFFERENTIATED CARCINOMA COMPATIBLE WITH KNOWN HISTORY OF METASTATIC UROTHELIAL CARCINOMA. SEE COMMENT. Comment: Cytomorphology is similar to prior effusion. Overall findings are consistent with known history of metastatic urothelial carcinoma. See prior effusion material ([id number]) for complete immunophenotypic workup. Case seen in intradepartmental review with consensus on diagnosis. Case discussed with Dr. Torres, 08/28/20. Electronically Signed Jie Puri M.D.
== END 2020-08-29 18:53 | disposition hospice, inpatient (51) | DRG 686 ==
LOC: SUPCPDRO 14:22 → JER 14:22 → JERBED 19:15 → J4S 22:23
PROVIDERS: ADMIT Internal Medicine; ATTEND Internal Medicine
PROC: 0W9B30Z Drainage of Left Pleural Cavity with Drainage Device, Percutaneous Approach (ICD-10-PCS; principal; 2020-08-23)
PROC: 0W9930Z Drainage of Right Pleural Cavity with Drainage Device, Percutaneous Approach (ICD-10-PCS; 2020-08-24)
PROC: 2W54XYZ Removal of Other Device on Chest Wall (ICD-10-PCS; 2020-08-25)
DX: C79.19 Secondary malignant neoplasm of other urinary organs (principal); A41.89 Other specified sepsis; E43 Unspecified severe protein-calorie malnutrition; R65.20 Severe sepsis without septic shock; T83.510A Infection and inflammatory reaction due to cystostomy catheter, initial encounter; C79.82 Secondary malignant neoplasm of genital organs; C79.51 Secondary malignant neoplasm of bone; C77.4 Secondary and unspecified malignant neoplasm of inguinal and lower limb lymph nodes; R64 Cachexia; M84.550A Pathological fracture in neoplastic disease, pelvis, initial encounter for fracture; Z68.1 Body mass index [BMI] 19.9 or less, adult; J98.11 Atelectasis; M84.48XA Pathological fracture, other site, initial encounter for fracture; N17.9 Acute kidney failure, unspecified; N13.8 Other obstructive and reflux uropathy; R18.8 Other ascites; E87.2 Acidosis; J91.0 Malignant pleural effusion; N39.0 Urinary tract infection, site not specified; F41.8 Other specified anxiety disorders; E86.0 Dehydration; K59.09 Other constipation; C62.90 Malignant neoplasm of unspecified testis, unspecified whether descended or undescended; R11.2 Nausea with vomiting, unspecified; Z93.50 Unspecified cystostomy status; M89.50 Osteolysis, unspecified site; E88.09 Other disorders of plasma-protein metabolism, not elsewhere classified; D72.829 Elevated white blood cell count, unspecified; R13.10 Dysphagia, unspecified; R62.7 Adult failure to thrive; N40.1 Benign prostatic hyperplasia with lower urinary tract symptoms; K64.9 Unspecified hemorrhoids; R00.0 Tachycardia, unspecified; R79.89 Other specified abnormal findings of blood chemistry; G89.3 Neoplasm related pain (acute) (chronic); Y65.8 Other specified misadventures during surgical and medical care
CPT/HCPCS: 32557; 36415; 71045-TC-FY; 71250-TC; 74176-TC; 74220-TC-FY; 74230-TC-FY; 80048; 80053; 81003; 82042; 82150; 82272; 82465; 82550; 82553; 82728; 82945; 83605; 83615; 83735; 83986; 84100; 84157; 84478; 84484; 85025; 85027; 85610; 85730; 86850; 86900; 86901; 87040; 87070; 87075; 87086; 87102; 87116; 87186; 87205; 87206; 87210; 88108; 88305-TC; 88341-TC; 92611-GN; 93005; 93010; 93306-TC; 99285-25; C1729; J0131; U0003